=== PATIENT | female | born 1980 | race Caucasian/White ===

== ENCOUNTER 2018-10-19 07:38 | Inpatient (IN) | payer BC, MEDICARE ==
[2018-10-19] MEDS ORDERED: ONDANSETRON 4 MG/2 ML VIAL IVP STA (08:07)
[2018-10-19] MEDS ORDERED: SODIUM CHLORIDE 0.9% 500 ML 500 ML IV STA (08:07)
[2018-10-19] MEDS ORDERED: FAMOTIDINE 20 MG/2 ML VIAL IV STA (08:08)
--- NOTE | 2018-10-19 08:31 | ED ---
General Adult HPI - General Chief complaint: Abdominal Pain Stated complaint: vomiting Time Seen by Provider: 10/19/18 07:53 Source: patient, RN notes reviewed, old records reviewed Mode of arrival: ambulatory Limitations: no limitations - History of Present Illness Initial comments: 38-year-old female presents for evaluation of chronic abdominal pain and nausea vomiting. She has been having daily episodes of nausea vomiting for the past several months. She has been diagnosed with IBS. She states every morning she wakes up, feels nauseated and has significant vomiting this last approximately 4 hours and then resolves. She has tried multiple treatments through her primary care physician. She reports predominantly epigastric abdominal pain. She has had no abdominal surgeries. No fever or chills. She has been able to eat throughout the day after these episodes in the morning. She does have chronic back pain and has medical marijuana card, she smokes marijuana on a regular basis. - Related Data Home Medications Medication Instructions Recorded Confirmed L.acidoph,Paracasei, B.lactis 1 cap PO DAILY 10/19/18 10/19/18 [Probiotic] Mirtazapine [Remeron] 15 mg PO HS 10/19/18 10/19/18 Morphine Sulfate Ir [MSIR] 15 mg PO QID 10/19/18 10/19/18 Omeprazole [PriLOSEC] 20 mg PO AC-BRKFST 10/19/18 10/19/18 Perphenazine [Trilafon] 2 mg PO BID 10/19/18 10/19/18 Prochlorperazine Maleate 5 mg PO Q4H PRN 10/19/18 10/19/18 Sertraline HCl [Zoloft] 25 mg PO DAILY 10/19/18 10/19/18 Sucralfate [Carafate] 1 gm PO ACHS 10/19/18 10/19/18 Allergies Allergy/AdvReac Type Severity Reaction Status Date / Time acetaminophen [From Vicodin] AdvReac Nausea & Verified 10/19/18 09:57 Vomiting fentanyl AdvReac Nausea & Verified 10/19/18 09:57 Vomiting hydrocodone [From Vicodin] AdvReac Nausea & Verified 10/19/18 09:57 Vomiting Review of Systems ROS Statement: Those systems with pertinent positive or pertinent negative responses have been documented in the HPI. ROS Other: All systems not noted in ROS Statement are negative. Past Medical History Past Medical History: No Reported History History of Any Multi-Drug Resistant Organisms: None Reported Additional Past Surgical History / Comment(s): back surgery Past Psychological History: Anxiety, Depression, Panic Disorder Smoking Status: Current some day smoker Past Alcohol Use History: None Reported Past Drug Use History: Marijuana General Exam Limitations: no limitations General appearance: alert, in no apparent distress Head exam: Present: atraumatic, normocephalic Eye exam: Present: normal appearance, PERRL ENT exam: Present: normal exam Neck exam: Present: normal inspection. Absent: tenderness, meningismus Respiratory exam: Present: normal lung sounds bilaterally. Absent: respiratory distress, wheezes Cardiovascular Exam: Present: regular rate, normal rhythm GI/Abdominal exam: Present: soft, tenderness (Right upper quadrant and epigastric tenderness to palpation). Absent: distended, guarding Extremities exam: Present: normal inspection, normal capillary refill. Absent: pedal edema, calf tenderness Back exam: Present: tenderness Neurological exam: Present: alert, oriented X3 Psychiatric exam: Present: normal affect, normal mood Skin exam: Present: warm, dry, intact. Absent: cyanosis, diaphoretic Course Vital Signs 10/19/18 07:40 Temperature 97.7 F Pulse Rate 66 Respiratory 18 Rate Blood Pressure 115/82 O2 Sat by Pulse 98 Oximetry Medical Decision Making - Medical Decision Making 38-year-old female with chronic daily abdominal pain and nausea vomiting. Patient has stable vitals, she has some tenderness on exam in the epigastrium and right upper quadrant. Laboratory testing is unremarkable. Ultrasound shows a dilated pancreatic duct at 2.8 cm, and a dilated common bile duct 8 mm. Patient has persistent symptoms despite treatment in the emergency department. Will be admitted for intractable nausea vomiting, gastroenterology placed on consult. Case discussed with the admitting physician. - Lab Data Result diagrams: 10/19/18 08:39 10/19/18 08:39 Lab Results 10/19/18 10/19/18 10/19/18 Range/Units 08:39 08:39 08:39 WBC 6.7 (3.8-10.6) k/uL RBC 4.37 (3.80-5.40) m/uL Hgb 13.3 (11.4-16.0) gm/dL Hct 39.2 (34.0-46.0) % MCV 89.8 (80.0-100.0) fL MCH 30.5 (25.0-35.0) pg MCHC 34.0 (31.0-37.0) g/dL RDW 12.6 (11.5-15.5) % Plt Count 352 (150-450) k/uL Neutrophils % 71 % Lymphocytes % 21 % Monocytes % 6 % Eosinophils % 1 % Basophils % 0 % Neutrophils # 4.8 (1.3-7.7) k/uL Lymphocytes # 1.4 (1.0-4.8) k/uL Monocytes # 0.4 (0-1.0) k/uL Eosinophils # 0.1 (0-0.7) k/uL Basophils # 0.0 (0-0.2) k/uL PT 11.0 (9.0-12.0) sec INR 1.0 (<1.2) APTT 23.8 (22.0-30.0) sec Sodium 142 (137-145) mmol/L Potassium 3.8 (3.5-5.1) mmol/L Chloride 109 H (98-107) mmol/L Carbon Dioxide 24 (22-30) mmol/L Anion Gap 9 mmol/L BUN 12 (7-17) mg/dL Creatinine 0.80 (0.52-1.04) mg/dL Est GFR (CKD-EPI)AfAm >90 (>60 ml/min/1.73 sqM) Est GFR (CKD-EPI)NonAf >90 (>60 ml/min/1.73 sqM) Glucose 113 H (74-99) mg/dL Calcium 10.1 (8.4-10.2) mg/dL Total Bilirubin 0.4 (0.2-1.3) mg/dL AST 19 (14-36) U/L ALT 19 (9-52) U/L Alkaline Phosphatase 84 (38-126) U/L Total Protein 7.3 (6.3-8.2) g/dL Albumin 4.7 (3.5-5.0) g/dL Amylase 62 (30-110) U/L Lipase 73 (23-300) U/L Urine Color Urine Appearance (Clear) Urine pH (5.0-8.0) Ur Specific [place] (1.001-1.035) Urine Protein (Negative) Urine Glucose (UA) (Negative) Urine Ketones (Negative) Urine Blood (Negative) Urine Nitrite (Negative) Urine Bilirubin (Negative) Urine Urobilinogen (<2.0) mg/dL Ur Leukocyte Esterase (Negative) Urine HCG, Qual (Not Detectd) 10/19/18 10/19/18 Range/Units 09:04 09:04 WBC (3.8-10.6) k/uL RBC (3.80-5.40) m/uL Hgb (11.4-16.0) gm/dL Hct (34.0-46.0) % MCV (80.0-100.0) fL MCH (25.0-35.0) pg MCHC (31.0-37.0) g/dL RDW (11.5-15.5) % Plt Count (150-450) k/uL Neutrophils % % Lymphocytes % % Monocytes % % Eosinophils % % Basophils % % Neutrophils # (1.3-7.7) k/uL Lymphocytes # (1.0-4.8) k/uL Monocytes # (0-1.0) k/uL Eosinophils # (0-0.7) k/uL Basophils # (0-0.2) k/uL PT (9.0-12.0) sec INR (<1.2) APTT (22.0-30.0) sec Sodium (137-145) mmol/L Potassium (3.5-5.1) mmol/L Chloride (98-107) mmol/L Carbon Dioxide (22-30) mmol/L Anion Gap mmol/L BUN (7-17) mg/dL Creatinine (0.52-1.04) mg/dL Est GFR (CKD-EPI)AfAm (>60 ml/min/1.73 sqM) Est GFR (CKD-EPI)NonAf (>60 ml/min/1.73 sqM) Glucose (74-99) mg/dL Calcium (8.4-10.2) mg/dL Total Bilirubin (0.2-1.3) mg/dL AST (14-36) U/L ALT (9-52) U/L Alkaline Phosphatase (38-126) U/L Total Protein (6.3-8.2) g/dL Albumin (3.5-5.0) g/dL Amylase (30-110) U/L Lipase (23-300) U/L Urine Color Colorless Urine Appearance Clear (Clear) Urine pH 8.0 (5.0-8.0) Ur Specific [place] 1.003 (1.001-1.035) Urine Protein Negative (Negative) Urine Glucose (UA) Negative (Negative) Urine Ketones Negative (Negative) Urine Blood Negative (Negative) Urine Nitrite Negative (Negative) Urine Bilirubin Negative (Negative) Urine Urobilinogen <2.0 (<2.0) mg/dL Ur Leukocyte Esterase Negative (Negative) Urine HCG, Qual Not Detected (Not Detectd) Disposition Clinical Impression: Intractable nausea and vomiting, Dilated pancreatic duct Disposition: ADMITTED IP TO THIS [facility] Condition: Stable Is patient prescribed a controlled substance at d/c from ED?: No Referrals: Nonstaff,Physician [Primary Care Provider] - 1-2 days Decision to Admit Reason: Admit from EC Decision Date: 10/19/18 Decision Time: 10:15
[2018-10-19 09:01] LABS: Basophils % (A) 0 %; Eosinophils # (A) 0.1 k/uL (0-0.7); Eosinophils % (A) 1 %; HCT 39.2 % (34.0-46.0); HGB 13.3 gm/dL (11.4-16.0); Lymphocytes # (A) 1.4 k/uL (1.0-4.8); Lymphocytes % (A) 21 %; MCH 30.5 pg (25.0-35.0); MCV 89.8 fL (80.0-100.0); Mean Platelet Volume 6.4; Monocytes # (A) 0.4 k/uL (0-1.0); Monocytes % (A) 6 %; Neutrophils # (A) 4.8 k/uL (1.3-7.7); Neutrophils % (A) 71 %; Platelet Count 352 k/uL (150-450); RBC 4.37 m/uL (3.80-5.40); RDW 12.6 % (11.5-15.5); WBC 6.7 k/uL (3.8-10.6)
[2018-10-19 09:09] LABS: Partial Thromboplastin Time 23.8 sec (22.0-30.0)
[2018-10-19 09:13] LABS: ALT 19 U/L (9-52); AST 19 U/L (14-36); African American GFR (CKD) >90 (>60 ml/min/1.73 sqM); Albumin 4.7 g/dL (3.5-5.0); Alkaline Phosphatase 84 U/L (38-126); Amylase 62 U/L (30-110); Anion Gap 9 mmol/L; Blood Urea Nitrogen 12 mg/dL (7-17); Calcium 10.1 mg/dL (8.4-10.2); Carbon Dioxide 24 mmol/L (22-30); Chloride 109 mmol/L (98-107); Glucose 113 mg/dL (74-99); Lipase 73 U/L (23-300); Potassium 3.8 mmol/L (3.5-5.1); Sodium 142 mmol/L (137-145); Total Bilirubin 0.4 mg/dL (0.2-1.3); Total Protein 7.3 g/dL (6.3-8.2)
[2018-10-19 09:14] LABS: Appearance,Urine Clear (Clear); Bilirubin,Urine Negative (Negative); Blood,Urine Negative (Negative); Color,Urine Colorless; Glucose,Urine (UA) Negative (Negative); Ketones,Urine Negative (Negative); Leukocyte Esterase,Urine Negative (Negative); Nitrite,Urine Negative (Negative); Protein,Urine Negative (Negative); Specific Gravity,Urine 1.003 (1.001-1.035); Urobilinogen,Urine <2.0 mg/dL (<2.0)
--- NOTE | 2018-10-19 09:45 | US ---
EXAMINATION TYPE: US gallbladder DATE OF EXAM: 10/19/2018 COMPARISON: NONE CLINICAL HISTORY: 38-year-old female RUQ pain, nausea and vomiting every morning for 8 months TECHNIQUE: Multiple sonographic images of the right upper quadrant are obtained. FINDINGS: EXAM MEASUREMENTS: Liver Length: 14.0 cm Gallbladder Wall: 0.2 cm CBD: 0.8 cm Right Kidney: 10.6 x 3.9 x 4.6 cm Pancreas: A small portion of the pancreatic body is seen. The remainder is obscured by bowel gas sha dowing. The main pancreatic duct is borderline dilated at 2.8 mm. Liver: A few scattered double ducts are difficult to exclude. No focal lesion seen. Gallbladder: No abnormal distention, wall thickening, pericholecystic fluid, or shadowing calculi. Evidence for sonographic Venegas's sign: no CBD: Dilated at 8 mm Right Kidney: wnl IMPRESSION: Borderline caliber to the main pancreatic duct at 2.8 mm and a dilated bile duct at 8 mm. A relative distal obstruction such as near the ampulla or in the pancreatic head region difficult to exclude. Co rrelate with alkaline phosphatase, bilirubin levels, amylase/lipase. ERCP or MRCP if indicated.
[2018-10-19] MEDS ORDERED: NALOXONE 0.4 MG/ML 1 ML VIAL IV PRN (10:10)
[2018-10-19] MEDS: SUCRALFATE 1 GM TAB PO SCH ×3 (13:06→20:24)
[2018-10-19] MEDS: SODIUM CHLORIDE 0.9% 1,000 ML IV SCH (13:14)
[2018-10-19] MEDS: HEPARIN SODIUM,PORCINE 5,000 UNIT/ML 1 ML VIAL SQ SCH ×2 (15:24→23:02)
[2018-10-19] MEDS: ONDANSETRON 4 MG/2 ML VIAL IVP PRN ×2 (15:24→22:44)
[2018-10-19] MEDS: MIRTAZAPINE 15 MG TAB PO SCH (20:23)
--- NOTE | 2018-10-19 22:56 | P.HPIM ---
History of Present Illness H&P Date: 10/19/18 Chief Complaint: Nausea and vomiting Patient is a 38-year-old female with a known history of anxiety/depression and panic disorder, nicotine addiction and marijuana use came to ER with the complaints of intractable nausea and vomiting intermittently since January 2018. 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 Patient has been having bilious vomiting. Unable to tolerate any oral diet. Patient was diagnosed with IBS. Patient was seen by Dr. Barry in the GI clinic. Patient says that she had easy and colonoscopy. Patient is also having epigastric abdominal pain. No fever no chills. No chest pain or shortness of breath. She does have chronic back pain and has medical marijuana card, she smokes marijuana on a regular basis. Ultrasound of the abdomen showed borderline caliber to the main pancreatic duct at 2.8 mm and dilated bile duct at 8 mm. Review of Systems Constitutional: Patient denies any fever or chills . No generalized weakness or weight loss. Abdomen: Intractable nausea vomiting abdominal pain. Cardiovascular: Patient denies any chest pain or short of breath no palpitations. Respiratory: patient denied any cough is from production. No shortness of breath Neurologic: Patient denied any numbness or tingling headache. Musculoskeletal: Patient denies any complaints of joint swelling or deformity. Skin: Negative Psychiatric: Negative Endocrine: No heat or cold intolerance. No recent weight gain. Genitourinary: No dysuria or hematuria. All other 14 point ROS negative except the above Past Medical History Past Medical History: No Reported History History of Any Multi-Drug Resistant Organisms: None Reported Additional Past Surgical History / Comment(s): back surgery Past Psychological History: Anxiety, Depression, Panic Disorder Smoking Status: Current some day smoker Past Alcohol Use History: None Reported Past Drug Use History: Marijuana - Past Family History Mother Family Medical History: No Reported History Medications and Allergies Home Medications Medication Instructions Recorded Confirmed Type L.acidoph,Paracasei, B.lactis 1 cap PO DAILY 10/19/18 10/19/18 History [Probiotic] Mirtazapine [Remeron] 15 mg PO HS 10/19/18 10/19/18 History Morphine Sulfate Ir [MSIR] 15 mg PO QID 10/19/18 10/19/18 History Omeprazole [PriLOSEC] 20 mg PO -KT 10/19/18 10/19/18 History Perphenazine [Trilafon] 2 mg PO BID 10/19/18 10/19/18 History Prochlorperazine Maleate 5 mg PO Q4H PRN 10/19/18 10/19/18 History Sertraline HCl [Zoloft] 25 mg PO DAILY 10/19/18 10/19/18 History Sucralfate [Carafate] 1 gm PO ACHS 10/19/18 10/19/18 History Allergies Allergy/AdvReac Type Severity Reaction Status Date / Time acetaminophen [From Vicodin] AdvReac Nausea & Verified 10/19/18 09:57 Vomiting fentanyl AdvReac Nausea & Verified 10/19/18 09:57 Vomiting hydrocodone [From Vicodin] AdvReac Nausea & Verified 10/19/18 09:57 Vomiting Physical Exam Vitals: Vital Signs Temp Pulse Pulse Resp BP BP Pulse Ox 10/19/18 11:29 97.7 F 60 15 103/63 97 10/19/18 11:12 97.7 F 88 18 114/86 98 10/19/18 10:16 88 18 114/86 98 10/19/18 07:40 97.7 F 66 18 115/82 98 Intake and Output 10/18/18 10/19/18 10/19/18 22:59 06:59 14:59 Intake Total 300 Balance 300 Intake: Amount of Fluid Infused ( 300 ml) Other: Weight 77.111 kg PHYSICAL EXAMINATION: Patient is lying in the bed comfortably, no acute distress, awake alert and oriented. Patient is anxious., Tearful.. HEENT: Normocephalic. Neck is supple. Pupils reactive. Nostrils clear. Oral cavity is moist. Ears reveal no drainage. Neck reveals no JVD, carotid bruits, or thyromegaly. CHEST EXAMINATION: Trachea is central. Symmetrical expansion. Lung pinto clear to auscultation and percussion. CARDIAC: Normal S1, S2 with no gallops. No murmurs ABDOMEN: Soft. Bowel sounds normal. No organomegaly. No abdominal bruits. Extremities: reveal no edema. No clubbing or cyanosis Neurologically awake, alert, oriented x3 with well-coordinated movements. No focal deficits noted Skin: No rash or skin lesions. Psychiatric: Coperative. Nonsuicidal Musculoskeletal: No joint swelling or deformity. Normal range of motion. Results CBC & Chem 7: 10/19/18 08:39 10/19/18 08:39 Labs: Abnormal Lab Results - Last 24 Hours (Table) 10/19/18 Range/Units 08:39 Chloride 109 H (98-107) mmol/L Glucose 113 H (74-99) mg/dL Thrombosis Risk Factor Assmnt - DVT/VTE Prophylaxis DVT/VTE Prophylaxis: Pharmacologic Prophylaxis ordered Assessment and Plan Assessment: Intractable nausea vomiting and dilated bile duct. Suspected obstructive to the distal bile duct. History of IBS Anxiety/depression/panic disorder Nicotine addiction and marijuana use with medical card. DVT prophylaxis Plan: Patient be continued on IV hydration. Symptomatic management for nausea and vomiting. Continue with PPI IV daily. Gastroenterology was consulted for possible ERCP/MRCP. Further recommendations based on the clinical course. Smoking sedation has been counseled extensively. Time with Patient: Greater than 30
[2018-10-20] MEDS: SODIUM CHLORIDE 0.9% 1,000 ML IV SCH ×2 (05:09→05:21)
[2018-10-20] MEDS: ONDANSETRON 4 MG/2 ML VIAL IVP PRN (05:15)
[2018-10-20] MEDS: SUCRALFATE 1 GM TAB PO SCH ×4 (07:52→22:42)
[2018-10-20] MEDS: SERTRALINE 25 MG TAB PO SCH (07:53)
[2018-10-20] MEDS: LACTOBACILLUS ACIDOPH & BULGAR 1 EACH PACKET PO SCH (07:54)
[2018-10-20] MEDS ORDERED: TRIMETHOBENZAMIDE 100 MG/ML 2 ML VIAL IM STA (08:09)
[2018-10-20] MEDS: HEPARIN SODIUM,PORCINE 5,000 UNIT/ML 1 ML VIAL SQ SCH ×2 (08:58→18:08)
[2018-10-20] MEDS: PANTOPRAZOLE 40 MG/10 ML VIAL IV SCH (08:59)
--- NOTE | 2018-10-20 12:41 | MR ---
EXAMINATION TYPE: MR MRCP DATE OF EXAM: 10/20/2018 COMPARISON: Previous ultrasound dated 10/19/2018. HISTORY: abnormal ultrasound Standard multiplanar, multisequence MRI departmental protocol MRCP was acquired. Diffusion weighted imaging was not performed. FINDINGS: Bilateral breast implants are in place. The gallbladder is unremarkable. The distal common bile duct is dilated measuring 8.8 mm. A definite lesion at the ampulla bladder is not identified. The pancreas appears normal. The pancreatic duct is not dilated. In phase and out of phase imaging shows mild steatosis of the liver. The spleen is unremarkable. Both adrenal glands appear normal. The kidneys are unremarkable. IMPRESSION: 1. DILATED DISTAL COMMON BILE DUCT. 2. BILATERAL BREAST IMPLANTS NOT FULLY VISUALIZED.
[2018-10-20] MEDS: MIRTAZAPINE 15 MG TAB PO SCH (22:42)
[2018-10-21] MEDS: HEPARIN SODIUM,PORCINE 5,000 UNIT/ML 1 ML VIAL SQ SCH ×4 (01:20→23:40)
[2018-10-21] MEDS: SODIUM CHLORIDE 0.9% 1,000 ML IV SCH ×2 (02:30→23:43)
[2018-10-21] MEDS: ONDANSETRON 4 MG/2 ML VIAL IVP PRN (06:01)
[2018-10-21] MEDS: LACTOBACILLUS ACIDOPH & BULGAR 1 EACH PACKET PO SCH (09:12)
[2018-10-21] MEDS: PANTOPRAZOLE 40 MG/10 ML VIAL IV SCH (09:12)
[2018-10-21] MEDS: SUCRALFATE 1 GM TAB PO SCH ×4 (09:12→20:34)
[2018-10-21] MEDS: SERTRALINE 25 MG TAB PO SCH (09:12)
--- NOTE | 2018-10-21 10:16 | P.GSCN ---
History of Present Illness Consult date: 10/21/18 Reason for Consult: Abdominal pain Requesting physician: Daisy Franklin History of present illness: CHIEF COMPLAINT: Abdominal pain HISTORY OF PRESENT ILLNESS: The patient is a 38 year old female admitted for the last 2 days in the hospital. She has severe intractable abdominal pain with nausea and vomiting since admission. She is being followed by GI Dr. Franklin who has done an upper and lower endoscopy with diagnosis of irritable bowel syndrome months prior. She has been followed for at least 8 months for similar symptoms and has also been seen by a psychiatrist. She has intolerance to multiple foods. She denies trial of gluten free diet, though. Her pain is severe crampy in nature radiating from the right upper back, shoulder, right upper abdominal wall. She also reports having a hiatal hernia. She has completed MRCP and US of the gallbladder with dilated common bile duct and pancreatic duct. General bhakta rgery is consulted as she presents with right upper quadrant pain, intolerance to fatty foods, family history of gallbladder disease. PAST MEDICAL HISTORY: See list. PAST SURGICAL HISTORY: See list. MEDICATIONS: See list. ALLERGIES: See list. SOCIAL HISTORY: Has illicit drug use. Tobacco abuse. FAMILY HISTORY: No reports of Crohn's disease or inflammatory bowel disease. Family history of gallbladder disorder. REVIEW OF ORGAN SYSTEMS: CONSTITUTIONAL: No fevers or chills. EYES: Denies any trouble with vision. No glasses. HEENT: No difficulties with hearing. No nosebleeds. No difficulty swallowing. RESPIRATORY: Denies pneumonia. Denies any troubles with breathing or dyspnea on exertion. CARDIOVASCULAR: Denies any chest pain, palpitations, or recent heart attacks. GASTROINTESTINAL: Has fatty food intolerance. Has change in bowel habits and gas bloat. GENITOURINARY: Denies any blood in urine or increased urinary frequency. NEUROLOGICAL: Denies any numbness or tingling along the distal extremities. No seizure disorders or headaches. MUSCULOSKELETAL: Has back pain, stiffness or joint arthritis. SKIN: No current skin cancer. No rash. PSYCHIATRIC: Has depression. No suicidal thoughts. Has anxiety. Has panic disorder. ENDOCRINE: Denies current thyroid disorders. Denies any blood sugar glucose intolerance. HEME/LYMPHATIC: Denies any lumps and bumps around the neck. No recent deep venous thrombosis. ALLERGY/IMMUNOLOGY: No immunoglobulin therapy. No immune deficiencies. BREAST: Denies current breast lumps, pain or nipple discharge. PHYSICAL EXAM: VITALS: Reviewed CONSTITUTIONAL: Well developed and in no acute distress. EYES: Conjuctivae without sclera icterus. Pupils are equally round and reactive to light. Extraocular movements grossly intact. HEAD, EARS, NOSE, THROAT: Moist buccal mucosa. Head is atraumatic, normocephalic. Hears conversational speech. No nasal drainage. NECK: Supple. No JV distention. No thyroidomegaly. RESPIRATORY: Non-labored respirations and equal bilateral excursions. No gross wheezes. CARDIOVASCULAR: Regular rate and rhythm. Extremities without moderate edema. Palpable 2+ radial pulses. ABDOMEN: No hepatomegaly. Soft. Tender right upper quadrant. LYMPH: No neck lymphadenopathy. MUSCULOSKELETAL: Gait within normal limits. Range of motion bilateral upper extremities within normal limits. Nail and fingers with good capillary refill. SKIN: Warm and well perfused with good skin turgor. NEUROLOGIC: Cranial nerves I through XII grossly intact. Sensation upper and extremities intact. No focal or lateralizing signs. PSYCH: Appropriate affect. Alert and oriented to person, place and time. Displays appropriate insight. CLINCAL LABS: Reviewed. LFTs normal. RADIOLOGY: Report reviewed with MRCP showing dilated CBD. Report of US also showing dilated pancreatic and CBD ducts. IMAGING: Independently reviewed demonstrating fold in gallbladder at infundibulum not reported by radiologist. ASSESSMENT: 1. Abnormal US gallbladder 2. Abdominal pain 3. Intractable nausea and vomiting 4. Clinical cholecystitis. PLAN: 1. Will proceed with robotic cholecystectomy. 2. I did review with her that there is a possibility that she may have persistent symptoms after surgery. 3. Benefits and risks were reviewed. 4. Shared decision making performed and she was agreeable to proceed. 5. DVT prophylaxis 6. Antibiotic prophylaxis. 7. Low fat diet. Thank you for this kind consultation. Past Medical History Past Medical History: No Reported History History of Any Multi-Drug Resistant Organisms: None Reported Additional Past Surgical History / Comment(s): back surgery Past Psychological History: Anxiety, Depression, Panic Disorder Smoking Status: Current some day smoker Past Alcohol Use History: None Reported Past Drug Use History: Marijuana - Past Family History Mother Family Medical History: No Reported History Medications and Allergies Home Medications Medication Instructions Recorded Confirmed Type L.acidoph,Paracasei, B.lactis 1 cap PO DAILY 10/19/18 10/19/18 History [Probiotic] Mirtazapine [Remeron] 15 mg PO HS 10/19/18 10/19/18 History Morphine Sulfate Ir [MSIR] 15 mg PO QID 10/19/18 10/19/18 History Omeprazole [PriLOSEC] 20 mg PO AC-BRKFST 10/19/18 10/19/18 History Perphenazine [Trilafon] 2 mg PO BID 10/19/18 10/19/18 History Prochlorperazine Maleate 5 mg PO Q4H PRN 10/19/18 10/19/18 History Sertraline HCl [Zoloft] 25 mg PO DAILY 10/19/18 10/19/18 History Sucralfate [Carafate] 1 gm PO ACHS 10/19/18 10/19/18 History Allergies Allergy/AdvReac Type Severity Reaction Status Date / Time acetaminophen [From Vicodin] AdvReac Nausea & Verified 10/19/18 09:57 Vomiting fentanyl AdvReac Nausea & Verified 10/19/18 09:57 Vomiting hydrocodone [From Vicodin] AdvReac Nausea & Verified 10/19/18 09:57 Vomiting Surgical - Exam Vital Signs Temp Pulse Resp BP Pulse Ox 97.7 F 66 18 115/82 98 10/19/18 07:40 10/19/18 07:40 10/19/18 07:40 10/19/18 07:40 10/19/18 07:40 Results - Labs 10/19/18 08:39 10/19/18 08:39
--- NOTE | 2018-10-21 11:56 | CONS ---
CONSULTATION DATE OF CONSULTATION: 10/21/2018 REQUESTING PHYSICIAN: Dr. Matt. REASON FOR CONSULTATION: Abdominal pain. HISTORY OF PRESENT ILLNESS: The patient is a 38-year-old pleasant white female with a history of severe anxiety and depression as well as panic disorder, known to me from multiple office visits in the last 6 months. She has been complaining of severe abdominal pain associated with nausea, vomiting, diarrhea for the last 6-8 months duration. She was evaluated by me on an outpatient basis and an upper endoscopy as well as colonoscopy with biopsies as well as CT of the abdomen and pelvis done in January as well as February of 2018 and all of the workup was negative. The patient was being treated for possible irritable bowel syndrome as well as GERD with PPIs, dicyclomine and Lomotil on an outpatient basis. She was last seen in the office about 2 weeks ago, has been complaining of worsening symptoms, especially with diffuse abdominal pain mostly in the right upper quadrant area radiating to the back. Ultrasound of the abdomen done showed a slightly dilated pancreatic duct at 2.8 mm in diameter and slightly dilated common bile duct and she had an MRCP done that also showed dilated common bile duct measuring 8 mm in size, but no filling defects noted. She still complains of diffuse abdominal pain and requesting a surgical opinion. PAST MEDICAL HISTORY: Significant for anxiety, depression, irritable bowel syndrome, gastroesophageal reflux disease. PAST SURGICAL HISTORY: Back surgery; EGD, colonoscopy 6 months ago. MEDICATIONS: At home include Remeron, morphine, Prilosec, Trilafon, Zoloft, Carafate, Phenergan. ALLERGIES: TO FENTANYL, VICODIN. PAST FAMILY MEDICAL HISTORY: The family history unremarkable. SOCIAL HISTORY: Chronic smoker. No alcohol use. REVIEW OF SYSTEMS: Cardiopulmonary: No chest pain. Genitourinary: No dysuria or hematuria. Musculoskeletal: Unremarkable. Skin: Unremarkable. Endocrine: Unremarkable. Psychiatric: Unremarkable. Neurological: Unremarkable. ENT/vision unremarkable. Constitutional: No recent weight loss. No fever. PHYSICAL EXAMINATION: Appears comfortable no apparent distress. Vital signs stable. Blood pressure 132/88, pulse rate 58, temperature 98.6. HEENT examination unremarkable. Conjunctivae pink. Sclerae anicteric. Oral cavity no lesions. Neck: No jugular venous distention or lymph node enlargement. The chest was clear to auscultation. HEART: Regular rate and rhythm. ABDOMEN: Soft. Bowel sounds are positive. No organomegaly. EXTREMITIES: No pedal edema. SKIN no rashes. NEUROLOGIC: Alert and oriented x3. No focal deficits. LABS: Done at the time of admission to the hospital: WBC 6.7, hemoglobin 13.3, platelets are normal. PT/INR is normal. LFTs are normal. Amylase and lipase are within normal limits. Urinalysis was negative. IMPRESSION: 1. Right upper quadrant abdominal pain with intermittent episodes of nausea, vomiting for 6 to 8 months duration. She did have EGD colonoscopy as well as CT of the abdomen and pelvis in 6 months ago that was unremarkable. During this hospitalization, she did have ultrasound of the abdomen that showed a normal- appearing gallbladder with no evidence of gallstones or thickening noted. Subsequently, she was noted to have slightly dilated CBD at 8 mm and hence an MRCP was performed, which once again showed mild dilation of the common bile duct, but no evidence of filling defects noted. 2. History of severe anxiety and depression, being managed by psychiatric on an outpatient basis with antidepressants. RECOMMENDATION: Discussed with the patient all workup that she had undergone over the last 6 months. Reviewed results of ultrasound of the gallbladder as well as MRCP and biliary dilation with completely normal LFTs. No indication of any biliary obstruction or biliary pathology. Hence, no indication to proceed with any endoscopy intervention at the present time. Despite trying to explain to the patient, she requested for another opinion and hence we will obtain surgical consultation to evaluate further. In the meantime, continue with symptomatic and supportive care. Antiemetics as needed. Continue with Protonix 40 mg daily and will follow her closely during hospital stay. Thank you for this consultation. MMODL / IJN: [id number] /
[2018-10-21] MEDS: MIRTAZAPINE 15 MG TAB PO SCH (20:34)
--- NOTE | 2018-10-21 21:02 | P.PN ---
Subjective Progress Note Date: 10/20/18 Principal diagnosis: Nausea vomiting and abdominal pain Dilated bile ducts. Patient is a 38-year-old female with a known history of anxiety/depression and panic disorder, nicotine addiction and marijuana use came to ER with the complaints of intractable nausea and vomiting intermittently since January 2018. 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 Patient has been having bilious vomiting. Unable to tolerate any oral diet. Patient was diagnosed with IBS. Patient was seen by Dr. Barry in the GI clinic. Patient says that she had easy and colonoscopy. Patient is also having epigastric abdominal pain. No fever no chills. No chest pain or shortness of breath. She does have chronic back pain and has medical marijuana card, she smokes marijuana on a regular basis. Ultrasound of the abdomen showed borderline caliber to the main pancreatic duct at 2.8 mm and dilated bile duct at 8 mm. 10/20/2018 Patient is still complaining of nausea and episodes of vomiting. Also having abdominal pain. Slightly improved compared to yesterday. MRCP was done today which showed dilated distal common bile duct. Bilateral breast implants clinically not visualized. Gastroenterology is following. Gen. surgery will be consulted. chest pain or shortness of breath. no headache or dizziness or lightheadedness. current medications reviewed.. Objective - Vital Signs Vital signs: Vital Signs Temp 98.0 F 10/20/18 20:00 Pulse 60 10/20/18 20:00 Resp 18 10/20/18 20:00 BP 106/67 10/20/18 20:00 Pulse Ox 95 10/20/18 20:00 Intake & Output 10/20/18 10/20/18 10/21/18 06:59 18:59 06:59 Output Total 100 Balance -100 Output: Emesis 100 Other: # Voids 1 2 - Exam PHYSICAL EXAMINATION: Patient is lying in the bed comfortably, no acute distress, awake alert and orie nted.. HEENT: Normocephalic. Neck is supple. Pupils reactive. Nostrils clear. Oral cavity is moist. Ears reveal no drainage. Neck reveals no JVD, carotid bruits, or thyromegaly. CHEST EXAMINATION: Trachea is central. Symmetrical expansion. Lung pinto clear to auscultation and percussion. CARDIAC: Normal S1, S2 with no gallops. No murmurs ABDOMEN: Soft. Mild right upper quadrant tenderness. Bowel sounds normal. No organomegaly. No abdominal bruits. Extremities: reveal no edema. No clubbing or cyanosis Neurologically awake, alert, oriented x3 with well-coordinated movements. No focal deficits noted Skin: No rash or skin lesions. Psychiatric: Coperative. Nonsuicidal Musculoskeletal: No joint swelling or deformity. Normal range of motion. - Labs CBC & Chem 7: 10/19/18 08:39 10/19/18 08:39 Assessment and Plan Assessment: Intractable nausea vomiting and dilated bile duct. Suspected obstructive to the distal bile duct. MRCP showed distal dilated common bile left. History of IBS Anxiety/depression/panic disorder Nicotine addiction and marijuana use with medical card. DVT prophylaxis Plan: Patient be continued on IV hydration. Symptomatic management for nausea and vomiting. Continue with PPI IV daily. Gastroenterology is following.. Further recommendations based on the clinical course. Smoking sedation has been counseled extensively. Time with Patient: Greater than 30
--- NOTE | 2018-10-21 21:05 | P.PN ---
Subjective Progress Note Date: 10/21/18 Principal diagnosis: Nausea vomiting and abdominal pain Dilated bile ducts. Patient is a 38-year-old female with a known history of anxiety/depression and panic disorder, nicotine addiction and marijuana use came to ER with the complaints of intractable nausea and vomiting intermittently since January 2018. 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 Patient has been having bilious vomiting. Unable to tolerate any oral diet. Patient was diagnosed with IBS. Patient was seen by Dr. Barry in the GI clinic. Patient says that she had easy and colonoscopy. Patient is also having epigastric abdominal pain. No fever no chills. No chest pain or shortness of breath. She does have chronic back pain and has medical marijuana card, she smokes marijuana on a regular basis. Ultrasound of the abdomen showed borderline caliber to the main pancreatic duct at 2.8 mm and dilated bile duct at 8 mm. 10/20/2018 Patient is still complaining of nausea and episodes of vomiting. Also having abdominal pain. Slightly improved compared to yesterday. MRCP was done today which showed dilated distal common bile duct. Bilateral breast implants clinically not visualized. Gastroenterology is following. Gen. surgery will be consulted. chest pain or shortness of breath. no headache or dizziness or lightheadedness. 10/21/2018 Patient denied any complaints of nausea and vomiting today. Abdominal pain improved. Patient was seen by general surgery and is planning for cholecystectomy tomorrow due to fold in gallbladder at infundibulum And clinical cholecystitis. No fever no chills. No chest pain or shortness of breath. No headache or dizziness or lightheadedness. Patient is scheduled for surgery tomorrow. Nothing by mouth after midnight. current medications reviewed.. Objective - Vital Signs Vital signs: Vital Signs Temp 98.5 F 10/21/18 12:25 Pulse 68 10/21/18 12:25 Resp 16 10/21/18 12:25 BP 111/72 10/21/18 12:25 Pulse Ox 97 10/21/18 12:25 Intake & Output 10/20/18 10/21/18 10/21/18 18:59 06:59 18:59 Intake Total 300 Balance 300 Intake: Oral 300 Other: # Voids 2 2 3 - Exam PHYSICAL EXAMINATION: Patient is lying in the bed comfortably, no acute distress, awake alert and oriented.. HEENT: Normocephalic. Neck is supple. Pupils reactive. Nostrils clear. Oral cavity is moist. Ears reveal no drainage. Neck reveals no JVD, carotid bruits, or thyromegaly. CHEST EXAMINATION: Trachea is central. Symmetrical expansion. Lung pinto clear to auscultation and percussion. CARDIAC: Normal S1, S2 with no gallops. No murmurs ABDOMEN: Soft. Mild right upper quadrant tenderness. Bowel sounds normal. No organomegaly. No abdominal bruits. Extremities: reveal no edema. No clubbing or cyanosis Neurologically awake, alert, oriented x3 with well-coordinated movements. No focal deficits noted Skin: No rash or skin lesions. Psychiatric: Coperative. Nonsuicidal Musculoskeletal: No joint swelling or deformity. Normal range of motion. - Labs CBC & Chem 7: 10/19/18 08:39 10/19/18 08:39 Assessment and Plan Assessment: Intractable nausea vomiting and dilated bile duct.. MRCP showed distal dilated common bile left. Abnormal gallbladder Fold in gallbladder at infundibulum and clinical cholecystitis. History of IBS Anxiety/depression/panic disorder Nicotine addiction and marijuana use with medical card. DVT prophylaxis Plan: Patient be continued on IV hydration. Symptomatic management for nausea and vomiting. Continue with PPI IV daily. Gastroenterology and general surgery is following. Scheduled for cholecystectomy tomorrow.. Further recommendations based on the clinical course. Smoking sedation has been counseled extensively. Time with Patient: Greater than 30
[2018-10-22] MEDS: ONDANSETRON 4 MG/2 ML VIAL IVP PRN (04:02)
[2018-10-22] MEDS ORDERED: diphenhydrAMINE 50 MG/ML 1 ML VIAL IVP PRN (06:12)
[2018-10-22] MEDS ORDERED: ceFAZolin IN SWFI 2 GM/20 ML SYRINGE IVP ONE (08:00)
[2018-10-22] MEDS ORDERED: IV FLUID CONTINUATION 1,000 ML IV ONE (08:32)
[2018-10-22] MEDS ORDERED: METOCLOPRAMIDE 5 MG/ML 2 ML VIAL IVP ONE (09:10)
[2018-10-22] MEDS ORDERED: FAMOTIDINE 20 MG/2 ML VIAL IVP ONE (09:10)
[2018-10-22] MEDS ORDERED: HEPARIN SODIUM,PORCINE 5,000 UNIT/ML 1 ML VIAL SQ ONE (10:18)
[2018-10-22] MEDS ORDERED: LACTATED RINGERS 1,000 ML IV ONE (10:58)
[2018-10-22] MEDS ORDERED: LIDOCAINE 1% INJ 10MG/ML (20 ML MDV) SQ ONE (11:00)
[2018-10-22] MEDS ORDERED: diphenhydrAMINE 50 MG/ML 1 ML VIAL IVP ONE (12:00)
[2018-10-22] MEDS ORDERED: HYDROmorphone 1 MG/ML 1 ML SYRINGE IVP ONE ×2 (12:09→12:20)
[2018-10-22] MEDS ORDERED: PROMETHAZINE INJ 25 MG/ML 1 ML VIAL IVPB ONE (12:25)
--- NOTE | 2018-10-22 12:35 | P.OP ---
Date of Procedure: 10/22/18 Description of Procedure: SURGEON: STACIE MATHEW MD PREOPERATIVE DIAGNOSES: 1. Right upper quadrant abdominal pain 2. Chronic cholecystitis 3. Abnormal US gallbladder 4. Intractable nausea and vomiting 5. Family history of gallbladder disease 6. Panic disorder 7. Depressive disorder 8. Anxiety disorder 9. Tobacco use. POSTOPERATIVE DIAGNOSES: 1. Right upper quadrant abdominal pain 2. Chronic cholecystitis 3. Abnormal US gallbladder 4. Intractable nausea and vomiting 5. Family history of gallbladder disease 6. Panic disorder 7. Depressive disorder 8. Anxiety disorder 9. Tobacco use. OPERATION: Robotic-assisted da Kim Xi laparoscopic cholecystectomy, multiport with FIREFLY Anesthesia: GETA, local Estimated Blood Loss (ml): 5 Pathology: other (gallbladder) Condition: stable Disposition: floor Operative Findings: 1. Dilated CBD 2. Adhesions along right lower quadrant 3. Console time 11 minutes INDICATIONS: The patient is a 38-year-old female who presents with cholelcystitis. Surgical intervention with a laparoscopic cholecystectomy was described at length including injury to the biliary tree, bleeding, infection, need for further surgery. Informed consent was obtained. Robotic assisted laparoscopic approach was described. Benefits and risks of the procedure including but not limited to bleeding, infection, injury to the biliary tree was described. Informed consent was obtained. DESCRIPTION OF PROCEDURE: Patient was brought to the operating room, placed in supine position. After general induction, the abdomen had been prepped and draped in standard sterile fashion. The robotic da Kim XI system was primed. After a timeout protocol was performed, the patient had been prepped and draped in standard sterile fashion. The patient was injected with indocyanine green. A 5 mm 0 degrees laparoscopic trocar entry was performed along the left upper quadrant. The abdomen insufflated to 15 mmHg pressure which was tolerated well. Diagnostic laparoscopy demonstrated no injury to bowel viscera or mesentery. The liver surface was unremarkable. Next, two 8 mm robotic ports were placed along the right upper abdomen. The camera 8-mm port was maintained along the epigastrium. Another 8 mm port was placed along the left upper abdominal wall after exchanging the 5 mm port. Please note that the ports were placed at least 10 to 15 cm away from the target anatomy of the gallbladder. The robot was docked along the left lateral abdomen. The patient was repositioned in reverse Trendelenburg position. Using a grasper for arm 3, a grasper for arm 4, including hook cautery for arm 1, the robotic system was docked and primed as described. Instruments were interchanged by the butcher assistant including hook cautery, Bovie cautery and clip appliers. I had sat at the console. The gallbladder fundus was retracted over the dome of the liver. Initial attention was brought to the infundibulum which was gently retracted in the inferior lateral approach. Using a grasper, the cystic duct including the cystic artery was carefully skeletonized. FIREFLY was used to identify the cystic artery and cystic structures. Large PLASTIC clips were used throughout the entire case. Using a clip research recruiter 2 clips were placed proximally, and 1 clip was placed distally along the cystic duct and then cauterized with the cautery. Again care was taken to avoid any injury to the biliary tree as the common bile duct was clearly visualized during this portion of dissection. Next, the cystic artery was similarly clipped and cauterized. Electro-Bovie cautery was used to remove the gallbladder from the hepatic fossa. Hemostasis was checked and found to be adequate. The robot was undocked. I re-scrubbed into the case. Using a 10 mm Endo Catch bag via the left upper quadrant incision, the specimen was removed from the abdominal cavity. All pneumoperitoneum instruments were evacuated from the abdominal cavity. The incisions were reapproximated using 4-0 Monocryl in an interrupted subcuticular fashion. Fascial defects were less than 8 mm in size. Please note along the trocar sites, local anesthetic was placed as a field block prior to insertion of all instruments. Liquid glue was applied to the skin. At the end of the procedure needle, sponge, and instrument count had been verified correct by the instructor adjunct surgical technician. The patient was transferred to postanesthesia care unit in stable condition.
[2018-10-22] MEDS: SUCRALFATE 1 GM TAB PO SCH ×4 (13:07→22:08)
[2018-10-22] MEDS: HYDROmorphone 1 MG/ML 1 ML SYRINGE IVP PRN ×3 (14:29→20:33)
[2018-10-22] MEDS ORDERED: ACETAMINOPHEN TAB 325 MG TAB PO PRN (14:34)
[2018-10-22 15:37] LABS: Basophils % (A) 0 %; Eosinophils % (A) 0 %; HCT 34.7 % (34.0-46.0); HGB 11.6 gm/dL (11.4-16.0); Lymphocytes # (A) 1.2 k/uL (1.0-4.8); Lymphocytes % (A) 12 %; MCH 29.8 pg (25.0-35.0); MCHC 33.6 g/dL (31.0-37.0); MCV 88.8 fL (80.0-100.0); Mean Platelet Volume 7.1; Monocytes # (A) 0.6 k/uL (0-1.0); Monocytes % (A) 6 %; Neutrophils # (A) 8.2 k/uL (1.3-7.7); Neutrophils % (A) 82 %; Platelet Count 300 k/uL (150-450); RDW 13.5 % (11.5-15.5); WBC 10.1 k/uL (3.8-10.6)
[2018-10-22 15:47] LABS: ALT 25 U/L (9-52); AST 31 U/L (14-36); African American GFR (CKD) >90 (>60 ml/min/1.73 sqM); Albumin 4.1 g/dL (3.5-5.0); Alkaline Phosphatase 67 U/L (38-126); Anion Gap 8 mmol/L; Blood Urea Nitrogen 8 mg/dL (7-17); Calcium 8.9 mg/dL (8.4-10.2); Carbon Dioxide 24 mmol/L (22-30); Chloride 109 mmol/L (98-107); Glucose 87 mg/dL (74-99); Potassium 3.6 mmol/L (3.5-5.1); Sodium 141 mmol/L (137-145); Total Bilirubin 0.3 mg/dL (0.2-1.3); Total Protein 6.5 g/dL (6.3-8.2)
[2018-10-22] MEDS: HEPARIN SODIUM,PORCINE 5,000 UNIT/ML 1 ML VIAL SQ SCH ×2 (16:24→17:42)
[2018-10-22] MEDS: LACTOBACILLUS ACIDOPH & BULGAR 1 EACH PACKET PO SCH (16:24)
[2018-10-22] MEDS: PANTOPRAZOLE 40 MG/10 ML VIAL IV SCH (17:39)
[2018-10-22] MEDS: SERTRALINE 25 MG TAB PO SCH (17:39)
[2018-10-22] MEDS: SODIUM CHLORIDE 0.9% 1,000 ML IV SCH (17:44)
[2018-10-22] MEDS: KETOROLAC 30 MG/ML 1 ML VIAL IVP PRN (19:57)
[2018-10-22] MEDS: MIRTAZAPINE 15 MG TAB PO SCH (20:32)
--- NOTE | 2018-10-22 20:52 | P.PN ---
Subjective From the medical records Patient is a 38-year-old female with a known history of anxiety/depression and panic disorder, nicotine addiction and marijuana use came to ER with the complaints of intractable nausea and vomiting intermittently since January 2018. 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 Patient has been having bilious vomiting. Unable to tolerate any oral diet. Patient was diagnosed with IBS. Patient was seen by Dr. Barry in the GI clinic. Patient says that she had easy and colonoscopy. Patient is also having epigastric abdominal pain. No fever no chills. No chest pain or shortness of breath. She does have chronic back pain and has medical marijuana card, she smokes marijuana on a regular basis. Ultrasound of the abdomen showed borderline caliber to the main pancreatic duct at 2.8 mm and dilated bile duct at 8 mm. 10/20/2018 Patient is still complaining of nausea and episodes of vomiting. Also having abdominal pain. Slightly improved compared to yesterday. MRCP was done today which showed dilated distal common bile duct. Bilateral breast implants clinically not visualized. Gastroenterology is following. Gen. surgery will be consulted. chest pain or shortness of breath. no headache or dizziness or lightheadedness. 10/21/2018 Patient denied any complaints of nausea and vomiting today. Abdominal pain improved. Patient was seen by general surgery and is planning for cholecystectomy tomorrow due to fold in gallbladder at infundibulum And clinical cholecystitis. No fever no chills. No chest pain or shortness of breath. No headache or di zziness or lightheadedness. Patient is scheduled for surgery tomorrow. Nothing by mouth after midnight. Subjective 10/22/2018, Mr. present care of the patient This is a pleasant 78 years old female with no significant past medical history presents with recurrent nausea vomiting,Ultrasound of the abdomen showed borderline caliber to the main pancreatic duct at 2.8 mm and dilated bile duct at 8 mm. MRCP showed dilated distal common bile duct. pt found to have gall bladder disease and surgery team did laprascopic cholecystectomy and today is post op day #1, pt with expected post op pain , on management. Objective - Vital Signs Vital signs: Vital Signs Temp 97.6 F 10/22/18 11:47 Pulse 60 10/22/18 12:00 Resp 16 10/22/18 12:00 BP 137/82 10/22/18 12:00 Pulse Ox 98 10/22/18 12:00 Intake & Output 10/21/18 10/22/18 10/22/18 18:59 06:59 18:59 Intake Total 0 1300 Output Total 5 Balance 0 1295 Intake: IV 1300 Oral 0 Output: Estimated Blood Loss 5 Other: # Voids 3 - Labs CBC & Chem 7: 10/22/18 15:23 10/22/18 15:23 Assessment and Plan Assessment: Intractable nausea vomiting and dilated bile duct.. MRCP showed distal dilated common bile left. Acute cholecystitis status post laproscopic cholecystectomy History of IBS Anxiety/depression/panic disorder Nicotine addiction and marijuana use with medical card. DVT prophylaxis Plan: pt is status post cholecystectomy . continue with pain management and iv hydratino. Continue with PPI IV daily. Gastroenterology and general surgery is following. Further recommendations based on the clinical course. Smoking sedation has been counseled extensively.
[2018-10-23] MEDS: HEPARIN SODIUM,PORCINE 5,000 UNIT/ML 1 ML VIAL SQ SCH ×3 (00:20→17:18)
[2018-10-23] MEDS: KETOROLAC 30 MG/ML 1 ML VIAL IVP PRN ×3 (01:43→20:49)
[2018-10-23] MEDS: HYDROmorphone 1 MG/ML 1 ML SYRINGE IVP PRN ×7 (01:44→20:51)
[2018-10-23] MEDS: ONDANSETRON 4 MG/2 ML VIAL IVP PRN (06:03)
[2018-10-23] MEDS: diphenhydrAMINE 50 MG/ML 1 ML VIAL IVP PRN (08:42)
[2018-10-23] MEDS: PANTOPRAZOLE 40 MG/10 ML VIAL IV SCH (09:59)
[2018-10-23] MEDS: SUCRALFATE 1 GM TAB PO SCH ×4 (10:01→20:53)
[2018-10-23] MEDS: LACTOBACILLUS ACIDOPH & BULGAR 1 EACH PACKET PO SCH (10:01)
[2018-10-23] MEDS ORDERED: BISACODYL 10 MG SUPP RECTAL STA (11:47)
[2018-10-23] MEDS: SERTRALINE 25 MG TAB PO SCH (12:20)
--- NOTE | 2018-10-23 13:28 | P.PN ---
Subjective Progress Note Date: 10/23/18 CHIEF COMPLAINT: Abdominal pain HISTORY OF PRESENT ILLNESS: Patient is status post robotic cholecystectomy with Dr. Crook. POD #1. Patient reports continued nausea with an episode of emesis this morning. She reports she tolerated clear liquid diet for breakfast. Reports constipation and states she has not had a bowel movement in about 5 days. PHYSICAL EXAM: VITAL SIGNS: Currently stable. GENERAL: Well-developed in no acute distress. HEENT: No sclera icterus. Extraocular movements grossly intact. Moist buccal mucosa. Head is atraumatic, normocephalic. Hears conversational speech. No nasal drainage. NECK: Supple without lymphadenopathy. CHEST: Non-labored respirations and equal bilateral excursions. CARDIOVASCULAR: Regular rate with regular rhythm. Palpable 2+ radial pulses. ABDOMEN: Soft. Nondistended. Appropriate surgical tenderness. Surgical incision sites clean dry and intact without bleeding or signs of infection. MUSCULOSKELETAL: No clubbing, cyanosis or edema. NEUROLOGIC: No focal or lateralizing signs. Cranial nerves II through XII grossly intact. PSYCH: Appropriate affect. Alert and oriented to person, place and time. SKIN: Well perfused. Good skin turgor. ASSESSMENT: 1. Cholecystitis, status post robotic cholecystectomy 2. Intractable nausea and vomiting 3. Constipation PLAN: 1. Advance diet to full liquid 2. Patient states she does not tolerate [place]. Patient may be discharged home on Tylenol PRN 3. Dulcolax suppository 1 4. Stable for discharge home today 5. Follow up with Dr. Crook outpatient Nurse practitioner note has been reviewed by physician. Signing provider agrees with the documented findings, assessment, and plan of care. Objective - Vital Signs Vital signs: Vital Signs Temp 98.8 F 10/23/18 09:07 Pulse 62 10/23/18 09:07 Resp 16 10/23/18 09:07 BP 125/76 10/23/18 09:07 Pulse Ox 96 10/23/18 09:07 Intake & Output 10/22/18 10/23/18 10/23/18 18:59 06:59 18:59 Intake Total 1300 370 Output Total 5 Balance 1295 370 Intake: IV 1300 Oral 370 Output: Estimated Blood Loss 5 Other: # Voids 1 0 - Labs CBC & Chem 7: 10/22/18 15:23 10/22/18 15:23 Labs: Abnormal Lab Results - Last 24 Hours (Table) 10/22/18 10/22/18 Range/Units 15:23 15:23 Neutrophils # 8.2 H (1.3-7.7) k/uL Chloride 109 H (98-107) mmol/L Assessment and Plan (1) Cholecystitis Current Visit: Yes Status: Acute Code(s): K81.9 - CHOLECYSTITIS, UNSPECIFIED SNOMED Code(s): 81952691 (2) Intractable nausea and vomiting Current Visit: Yes Status: Acute Code(s): R11.2 - NAUSEA WITH VOMITING, UNSPECIFIED SNOMED Code(s): 653703536
--- NOTE | 2018-10-23 14:15 | P.PN ---
Subjective From the medical records Patient is a 38-year-old female with a known history of anxiety/depression and panic disorder, nicotine addiction and marijuana use came to ER with the complaints of intractable nausea and vomiting intermittently since January 2018. 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 Patient has been having bilious vomiting. Unable to tolerate any oral diet. Patient was diagnosed with IBS. Patient was seen by Dr. Barry in the GI clinic. Patient says that she had easy and colonoscopy. Patient is also having epigastric abdominal pain. No fever no chills. No chest pain or shortness of breath. She does have chronic back pain and has medical marijuana card, she smokes marijuana on a regular basis. Ultrasound of the abdomen showed borderline caliber to the main pancreatic duct at 2.8 mm and dilated bile duct at 8 mm. 10/20/2018 Patient is still complaining of nausea and episodes of vomiting. Also having abdominal pain. Slightly improved compared to yesterday. MRCP was done today which showed dilated distal common bile duct. Bilateral breast implants clinically not visualized. Gastroenterology is following. Gen. surgery will be consulted. chest pain or shortness of breath. no headache or dizziness or lightheadedness. 10/21/2018 Patient denied any complaints of nausea and vomiting today. Abdominal pain improved. Patient was seen by general surgery and is planning for cholecystectomy tomorrow due to fold in gallbladder at infundibulum And clinical cholecystitis. No fever no chills. No chest pain or shortness of breath. No headache or di zziness or lightheadedness. Patient is scheduled for surgery tomorrow. Nothing by mouth after midnight. Subjective 10/22/2018, This is a pleasant 78 years old female with no significant past medical history presents with recurrent nausea vomiting,Ultrasound of the abdomen showed borderline caliber to the main pancreatic duct at 2.8 mm and dilated bile duct at 8 mm. MRCP showed dilated distal common bile duct. pt found to have gall bladder disease and surgery team did laprascopic cholecystectomy and today is post op day #1, pt with expected post op pain , on management. 10/23/2018 Patient vomited one time this morning, she still have some pain at the surgical site at RUQ, she is passing gases but no bowel movement, surgical team thinks she can be discharged however patient is having advance her diet yet. We are going to advance her diet from liquid to soft/regular diet. Of her Benadryl when necessary for nausea vomiting. Pain management. Patient agrees and wants to stay one more night for monitoring. Possible discharge in 24-48 hours, if her symptoms controlled and patient tolerates diet Objective - Vital Signs Vital signs: Vital Signs Temp 98.3 F 10/23/18 12:34 Pulse 58 L 10/23/18 12:34 Resp 20 10/23/18 12:34 BP 114/73 10/23/18 12:34 Pulse Ox 95 10/23/18 12:34 Intake & Output 10/22/18 10/23/18 10/23/18 18:59 06:59 18:59 Intake Total 1300 370 Output Total 5 Balance 1295 370 Intake: IV 1300 Oral 370 Output: Estimated Blood Loss 5 Other: # Voids 1 0 - Exam GENERAL: The patient is alert and oriented x3, not in any acute distress. Well developed, well nourished. HEENT: Pupils are round and equally reacting to light. EOMI. No scleral icterus. No conjunctival pallor. Normocephalic, atraumatic. No pharyngeal erythema. No thyromegaly. CARDIOVASCULAR: S1 and S2 present. No murmurs, rubs, or gallops. PULMONARY: Chest is clear to auscultation, no wheezing or crackles. -ABDOMEN: Soft, nontender, surgical site tenderness are RUQ, normoactive bowel sounds. No palpable organomegaly. Once for laparoscopy procedure are healing MUSCULOSKELETAL: No joint swelling or deformity. EXTREMITIES: No cyanosis, clubbing, or pedal edema. NEUROLOGICAL: Gross neurological examination did not reveal any focal deficits. SKIN: No rashes. - Labs CBC & Chem 7: 10/22/18 15:23 10/22/18 15:23 Labs: Abnormal Lab Results - Last 24 Hours (Table) 10/22/18 10/22/18 Range/Units 15:23 15:23 Neutrophils # 8.2 H (1.3-7.7) k/uL Chloride 109 H (98-107) mmol/L Assessment and Plan Assessment: Intractable nausea vomiting and dilated bile duct.. MRCP showed distal dilated common bile left. Acute cholecystitis status post laproscopic cholecystectomy History of IBS Anxiety/depression/panic disorder Nicotine addiction and marijuana use with medical card. DVT prophylaxis Plan: pt is status post cholecystectomy . continue with pain management and iv hydratino. Continue with PPI IV daily. Gastroenterology and general surgery is following. Further recommendations based on the clinical course. Smoking sedation has been counseled extensively.
[2018-10-23] MEDS: SODIUM CHLORIDE 0.9% 1,000 ML IV SCH (17:19)
--- NOTE | 2018-10-23 17:34 | P.PN ---
Progress Note - Text Progress Note Date: 10/23/18 Patient does report some improvement of her right upper quadrant pain. She is sore from recent surgery. I did re-address pre-surgical conversation that cholecystectomy may not resolve her projectile emesis. She had vomiting this morning. Additionally, she has severe chronic constipation of weekly bowel movements. Recommend rectal suppositories as oral cathartics will worsen nausea. Further management as outpatient also addressed for which she was agreeable with the care plan.
[2018-10-23] MEDS: MIRTAZAPINE 15 MG TAB PO SCH (20:53)
[2018-10-24] MEDS: HEPARIN SODIUM,PORCINE 5,000 UNIT/ML 1 ML VIAL SQ SCH ×2 (00:04→08:25)
[2018-10-24] MEDS: diphenhydrAMINE 50 MG/ML 1 ML VIAL IVP PRN (01:57)
[2018-10-24] MEDS: HYDROmorphone 1 MG/ML 1 ML SYRINGE IVP PRN ×3 (02:01→09:41)
[2018-10-24] MEDS: ONDANSETRON 4 MG/2 ML VIAL IVP PRN (04:45)
[2018-10-24] MEDS: SUCRALFATE 1 GM TAB PO SCH ×2 (08:24→12:27)
[2018-10-24] MEDS: SODIUM CHLORIDE 0.9% 1,000 ML IV SCH (08:30)
[2018-10-24] MEDS: LACTOBACILLUS ACIDOPH & BULGAR 1 EACH PACKET PO SCH (09:36)
[2018-10-24] MEDS: SERTRALINE 25 MG TAB PO SCH (09:36)
[2018-10-24] MEDS: PANTOPRAZOLE 40 MG/10 ML VIAL IV SCH (09:36)
[2018-10-24] MEDS ORDERED: traMADol 50 MG TAB PO PRN (11:25)
[2018-10-24] MEDS ORDERED: TRIMETHOBENZAMIDE 300 MG CAP PO PRN (11:45)
[2018-10-24] MEDS ORDERED: diphenhydrAMINE 25 MG CAP PO PRN (12:01)
[2018-10-24] MEDS: KETOROLAC 30 MG/ML 1 ML VIAL IVP PRN (12:30)
[2018-10-24 12:33] VITALS: BP 118/73; PULSE 70; RESP 18; TEMP 98.8
--- NOTE | 2018-10-24 13:24 | P.PN ---
Progress Note - Text Progress Note Date: 10/24/18 Patient remains stable for discharge from surgical standpoint. She may follow up outpatient with Dr. Crook outpatient for further workup of chronic nausea and vomiting.
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
[2018-10-24] MEDS ORDERED: PROPRANOLOL 10 MG TAB PO SCH (21:00)
[2018-10-24] MEDS ORDERED: ARIPiprazole 5 MG TAB PO SCH (21:00)
--- NOTE | 2018-10-24 22:21 | P.DS ---
Providers Date of admission: 10/21/18 16:09 Attending physician: Jenae Matt Consults: 10/21/18 09:06 Consult Physician Routine Consulting Provider: Nelia Crook Consult Reason/Comments: abd pain and n/v Do you want consulting provider notified?: Yes 10/24/18 11:23 Consult Physician Routine Consulting Provider: Анна Arthur Consult Reason/Comments: extreme anxiety, feelings of impending doom. Do you want consulting provider notified?: Yes Primary care physician: Physician Nonstaff Hospital Course: Diagnoses: -Intractable nausea vomiting for the last few days prior to admission, on the top of history of chronic nausea for about 8 months per patient. 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 EGD and colonoscopy done 6 months ago was unremarkable -Acute cholecystitis status post laproscopic cholecystectomy -History of severe anxiety -marijuana use with medical card for her chronic low back pain. Patient is counseled and she agrees to quit marijuana -dilated bile duct. MRCP showed distal dilated common bile left. -History of IBS -Anxiety/depression/panic disorder -Nicotine addiction Hospital course: Patient is a 38-year-old female with a known history of anxiety/depression and panic disorder, nicotine addiction and marijuana use came to ER with the complaints of intractable nausea and vomiting intermittently since January 2018. 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 However nausea become more severe and intractable associated with several bouts of vomiting upon admission. On admissions patient had abdominal imaging which showed biliary delectations was completely normal LFT, no indication for any biliary obstruction and no need for any endoscopy or intervention as per GI team. However upon surgical evaluation, patient suspected to have gallbladder and biliary disease, and she underwent laparoscopic cholecystectomy. Patient tolerated the procedure well and her symptoms improved and better controlled with antiemetic medication. Patient uses marijuana for her low back pain and she uses medical card for it. Patient suspected to have an appendectomyemesis syndrome and she counseled against using marijuana more and patient agrees to quit using cannabinoids. Also marijuana might contributed to her psychiatric symptoms. Patient has been feeling some psychiatric suicidal thoughts but without plans on tension and she was asking to see a psychiatrist who evaluated the patient also for impending doom and he recommended outpatient follow-up,the psychiatrist adjusted her medication and sent them to the pharmacy. please refer to the psych note for today for more details On the day of discharge patient denies chest pain or dyspnea. Abdominal pain is minimal at the surgical site. Diet is advanced and tolerated well by the patient. No more vomiting. Nausea controlled with medication. i offered to the pt one more day for monitoring her nausea but she wants to go home " my home make my nausea feeling better" . pt tolerated soft/regular diet well and is eager to go home Patient was cleared for discharge by all consultants including surgery, gastroenterology and psychiatry Problems and management plan were discussed with the patient and he verbalized understanding and acceptance Patient was found stable and can be discharged home however he needs follow-up as an outpatient. pt agrees with appointment and their timing made for her with GI , surgery and pcp . clinical social work aide provided information for psych f/u . pt agrees with the plan Gen: patient is a AAOx3, no distress CVS: S1-S2, RRR, no murmur Lungs: B/L CTA, no wheezing Abdomen: soft, no distention, no tenderness, positive bowel sounds. Laparoscopic sites wounds are healing Extremity: no leg edema or induration Time spent more than 35 minutes Patient Condition at Discharge: Stable Plan - Discharge Summary Discharge Rx Participant: Yes New Discharge Prescriptions: New Trimethobenzamide [Tigan] 300 mg PO TID PRN #6 cap PRN Reason: Nausea And Vomiting Sertraline [Zoloft] 50 mg PO DAILY #60 tab ARIPiprazole [Abilify] 5 mg PO HS #14 tab Propranolol [Inderal] 10 mg PO BID #28 tab Sertraline [Zoloft] 50 mg PO DAILY #14 tab Continue L.acidoph,Paracasei, B.lactis [Probiotic] 1 cap PO DAILY Omeprazole [PriLOSEC] 20 mg PO AC-BRKFST Morphine Sulfate Ir [MSIR] 15 mg PO QID Sucralfate [Carafate] 1 gm PO ACHS Discontinued Sertraline HCl [Zoloft] 25 mg PO DAILY Mirtazapine [Remeron] 15 mg PO HS No Action Perphenazine [Trilafon] 2 mg PO BID Prochlorperazine Maleate 5 mg PO Q4H PRN PRN Reason: Nausea Discharge Medication List L.acidoph,Paracasei, B.lactis [Probiotic] 1 cap PO DAILY 10/19/18 [History] Morphine Sulfate Ir [MSIR] 15 mg PO QID 10/19/18 [History] Omeprazole [PriLOSEC] 20 mg PO AC-BRKFST 10/19/18 [History] Perphenazine [Trilafon] 2 mg PO BID 10/19/18 [History] Prochlorperazine Maleate 5 mg PO Q4H PRN 10/19/18 [History] Sucralfate [Carafate] 1 gm PO ACHS 10/19/18 [History] ARIPiprazole [Abilify] 5 mg PO HS #14 tab 10/24/18 [Rx] Propranolol [Inderal] 10 mg PO BID #28 tab 10/24/18 [Rx] Sertraline [Zoloft] 50 mg PO DAILY #14 tab 10/24/18 [Rx] Sertraline [Zoloft] 50 mg PO DAILY #60 tab 10/24/18 [Rx] Trimethobenzamide [Tigan] 300 mg PO TID PRN #6 cap 10/24/18 [Rx] Follow up Appointment(s)/Referral(s): Diana Hood PAC [REFERRING] - 11/01/18 2:30 pm (You have an appointment with Diana Hood on October at 2:30 pm.) Nelia Crook MD [STAFF PHYSICIAN] - 11/08/18 9:00 am (You have an appointment with Dr Crook on October at 9:00 am.) Daisy Franklin MD [STAFF PHYSICIAN] - 10/30/18 2:15 pm (You have a follow up appointment with Dr Franklin at the [facility] office on Tuesday, October 30, 2018 at 2:15 pm.) Patient Instructions/Handouts: *Surgery [facility] - Laparoscopic Cholecystectomy Discharge Instructions, Mood Disorders (GEN), Generalized Anxiety Disorder (GEN) Activity/Diet/Wound Care/Special Instructions: Tylenol as needed for pain Light activity You may shower. No tub baths or soaking No lifting greater than 4 lbs for 4 weeks Good handwashing, drink plenty of fluids. No pools, ponds, lakes, or webb. Call Dr Crook if you develop a fever, chills, increase in pain, drainage from your incisions, or if you have any other questions or concerns. All of you follow up appointments have been set up. Please do your best to keep each appointment. Find a good summer novel and sit on the deck and relax!! Discharge Disposition: HOME SELF-CARE
[2018-10-25] MEDS ORDERED: PANTOPRAZOLE 40 MG TABLET PO SCH (09:00)
[2018-10-25] MEDS ORDERED: SERTRALINE 50 MG TAB PO SCH (09:00)
== END 2018-10-24 17:00 | disposition home or self-care (01) | DRG 419 ==
LOC: EC 07:38 → 4SSUR 10:40 → 6PED 10-20 06:36 → OBSVTOIN 10-21 16:09
PROVIDERS: ADMIT Internal Medicine; ATTEND Internal Medicine
PROC: 0FT44ZZ Resection of Gallbladder, Percutaneous Endoscopic Approach (ICD-10-PCS; principal; 2018-10-22 09:20)
PROC: 8E0W4CZ Robotic Assisted Procedure of Trunk Region, Percutaneous Endoscopic Approach (ICD-10-PCS; principal; 2018-10-22 09:20)
DX: K81.2 Acute cholecystitis with chronic cholecystitis (principal); F17.200 Nicotine dependence, unspecified, uncomplicated; F41.0 Panic disorder [episodic paroxysmal anxiety]; G89.29 Other chronic pain; K21.9 Gastro-esophageal reflux disease without esophagitis; K44.9 Diaphragmatic hernia without obstruction or gangrene; K58.1 Irritable bowel syndrome with constipation; K83.8 Other specified diseases of biliary tract; K86.89 Other specified diseases of pancreas; Z79.899 Other long term (current) drug therapy; Z88.5 Allergy status to narcotic agent; F12.988 Cannabis use, unspecified with other cannabis-induced disorder; Z81.8 Family history of other mental and behavioral disorders; Z81.1 Family history of alcohol abuse and dependence; Z81.3 Family history of other psychoactive substance abuse and dependence; F31.9 Bipolar disorder, unspecified
CPT/HCPCS: 36415; 74181; 76705; 80053; 81003; 81025; 82150; 83690; 85025; 85610; 85730; 88304; 96361; 96374; 96375; 99285

== ENCOUNTER 2021-05-28 12:12 | Inpatient (IN) | payer MEDICARE ==
[2021-05-28] MEDS ORDERED: SODIUM CHLORIDE 0.9% 2,000 ML IV STA (12:57)
[2021-05-28] MEDS ORDERED: ONDANSETRON 4 MG/2 ML VIAL IVP STA (12:57)
--- NOTE | 2021-05-28 13:02 | ED ---
General Adult HPI - General Chief complaint: Altered Mental Status Stated complaint: mental health Time Seen by Provider: 05/28/21 12:15 Source: patient, family, RN notes reviewed, old records reviewed Mode of arrival: ambulatory Limitations: no limitations - History of Present Illness Initial comments: This is a 41-year-old female presents emergency Department stating she is suicidal. Patient states about 10 days ago she had some financial issue arise and since then she has been vomiting and been unable to keep any food or fluids down. Patient states she's developed some epigastric abdominal pain since. Patient states this has happened in the past when she gets severe anxiety but he normally goes away after a few days but since that financial burden continues she continues to have the anxiety is suicidal thoughts and the vomiting. Patient denies any fever chills. Patient states she was constipated and took a bunch of laxatives and enemas and she has been able to go. Patient denies any chest pain or difficulty breathing. Patient denies any dysuria hematuria urinary frequency. - Related Data Home Medications Medication Instructions Recorded Confirmed ALPRAZolam [Xanax] 1 mg PO BID 05/28/21 05/28/21 Benztropine Mesylate [Cogentin] 1 mg PO BID 05/28/21 05/28/21 Dexmethylphenidate HCl [Focalin] 10 mg PO BID 05/28/21 05/28/21 Mirtazapine [Remeron] 15 mg PO HS 05/28/21 05/28/21 Morphine Sulfate Ir [MSIR] 30 mg PO QID 05/28/21 05/28/21 Ziprasidone [Geodon] 20 mg PO DAILY 05/28/21 05/28/21 Ziprasidone [Geodon] 40 mg PO HS 05/28/21 05/28/21 Previous Rx's Medication Instructions Recorded Propranolol [Inderal] 10 mg PO BID #28 tab 10/24/18 Sertraline [Zoloft] 50 mg PO DAILY #14 tab 10/24/18 Allergies Allergy/AdvReac Type Severity Reaction Status Date / Time acetaminophen [From Vicodin] AdvReac Nausea & Verified 05/28/21 12:51 Vomiting fentanyl AdvReac Nausea & Verified 05/28/21 12:51 Vomiting hydrocodone [From Vicodin] AdvReac Nausea & Verified 05/28/21 12:51 Vomiting Review of Systems ROS Statement: Those systems with pertinent positive or pertinent negative responses have been documented in the HPI. ROS Other: All systems not noted in ROS Statement are negative. Past Medical History Past Medical History: No Reported History History of Any Multi-Drug Resistant Organisms: None Reported Past Surgical History: No Surgical Hx Reported Additional Past Surgical History / Comment(s): back surgery Past Psychological History: Anxiety, Depression, Panic Disorder Smoking Status: Never smoker Past Alcohol Use History: None Reported Past Drug Use History: None Reported - Past Family History Mother Family Medical History: No Reported History General Exam - General Exam Comments Initial Comments: GENERAL: Patient is well-developed and well-nourished. Patient is nontoxic and well- hydrated and is in mild distress. ENT: Neck is soft and supple. No significant lymphadenopathy is noted. Oropharynx is clear. Moist mucous membranes. Neck has full range of motion without eliciting any pain. EYES: The sclera were anicteric and conjunctiva were pink and moist. Extraocular movements were intact and pupils were equal round and reactive to light. Eyelids were unremarkable. PULMONARY: Unlabored respirations. Good breath sounds bilaterally. No audible rales rhon chi or wheezing was noted. CARDIOVASCULAR: There is a regular rate and rhythm without any murmurs gallops or rubs. ABDOMEN: Mild epigastric abdominal tenderness SKIN: Skin is clear with no lesions or rashes and otherwise unremarkable. NEUROLOGIC: Patient is alert and oriented x3. Cranial nerves II through XII are grossly intact. Motor and sensory are also intact. Normal speech, volume and content. Symmetrical smile. MUSCULOSKELETAL: Normal extremities with adequate strength and full range of motion. No lower extremity swelling or edema. No calf tenderness. LYMPHATICS: No significant lymphadenopathy is noted PSYCHIATRIC: Normal psychiatric evaluation. Limitations: no limitations Course Vital Signs 05/28/21 05/28/21 12:16 14:48 Temperature 98.2 F Pulse Rate 63 64 Respiratory 18 18 Rate Blood Pressure 123/89 113/66 O2 Sat by Pulse 98 99 Oximetry Medical Decision Making - Medical Decision Making EKG shows marked sinus bradycardia at 46 bpm SC interval is 124 QRS is 84 QT interval 500 QTC is 437. Patient's EKG shows no ST segment elevation or depression. EPS evaluated the patient and she was admitted after I medically cleared her. Patient had no more vomiting in the emergency department. Patient denied methamphetamine use - Lab Data Result diagrams: 05/28/21 13:07 05/28/21 13:07 Lab Results 05/28/21 05/28/21 05/28/21 Range/Units 12:48 13:07 13:07 WBC 9.2 (3.8-10.6) k/uL RBC 4.56 (3.80-5.40) m/uL Hgb 14.4 (11.4-16.0) gm/dL Hct 41.0 (34.0-46.0) % MCV 90.0 (80.0-100.0) fL MCH 31.6 (25.0-35.0) pg MCHC 35.1 (31.0-37.0) g/dL RDW 13.6 (11.5-15.5) % Plt Count 415 (150-450) k/uL MPV 6.9 Neutrophils % 72 % Lymphocytes % 21 % Monocytes % 5 % Eosinophils % 1 % Basophils % 0 % Neutrophils # 6.6 (1.3-7.7) k/uL Lymphocytes # 1.9 (1.0-4.8) k/uL Monocytes # 0.4 (0-1.0) k/uL Eosinophils # 0.1 (0-0.7) k/uL Basophils # 0.0 (0-0.2) k/uL Sodium (137-145) mmol/L Potassium (3.5-5.1) mmol/L Chloride (98-107) mmol/L Carbon Dioxide (22-30) mmol/L Anion Gap mmol/L BUN (7-17) mg/dL Creatinine (0.52-1.04) mg/dL Est GFR (CKD-EPI)AfAm (>60 ml/min/1.73 sqM) Est GFR (CKD-EPI)NonAf (>60 ml/min/1.73 sqM) Glucose (74-99) mg/dL Plasma Lactic Acid [place] (0.7-2.0) mmol/L Calcium (8.4-10.2) mg/dL Total Bilirubin (0.2-1.3) mg/dL AST (14-36) U/L ALT (4-34) U/L Alkaline Phosphatase (38-126) U/L Total Protein (6.3-8.2) g/dL Albumin (3.5-5.0) g/dL Amylase (30-110) U/L Lipase (23-300) U/L Urine Color Yellow Urine Appearance Cloudy H (Clear) Urine pH 6.0 (5.0-8.0) Ur Specific [place] 1.025 (1.001-1.035) Urine Protein 1+ H (Negative) Urine Glucose (UA) Negative (Negative) Urine Ketones 1+ H (Negative) Urine Blood Moderate H (Negative) Urine Nitrite Negative (Negative) Urine Bilirubin Negative (Negative) Urine Urobilinogen <2.0 (<2.0) mg/dL Ur Leukocyte Esterase Large H (Negative) Urine RBC 17 H (0-5) /hpf Urine WBC >182 H (0-5) /hpf Ur Squamous Epith Cells 8 H (0-4) /hpf Urine Mucus Many H (None) /hpf Urine HCG, Qual (Not Detectd) Urine Opiates Screen (NotDetected) Ur Oxycodone Screen (NotDetected) Urine Methadone Screen (NotDetected) Ur Propoxyphene Screen (NotDetected) Ur Barbiturates Screen (NotDetected) U Tricyclic Antidepress (NotDetected) Ur Phencyclidine Scrn (NotDetected) Ur Amphetamines Screen (NotDetected) U Methamphetamines Scrn (NotDetected) U Benzodiazepines Scrn (NotDetected) Urine Cocaine Screen (NotDetected) U Marijuana (THC) Screen (NotDetected) Coronavirus (PCR) Not Detected (Not Detectd) 05/28/21 05/28/21 05/28/21 Range/Units 13:07 13:07 13:07 WBC (3.8-10.6) k/uL RBC (3.80-5.40) m/uL Hgb (11.4-16.0) gm/dL Hct (34.0-46.0) % MCV (80.0-100.0) fL MCH (25.0-35.0) pg MCHC (31.0-37.0) g/dL RDW (11.5-15.5) % Plt Count (150-450) k/uL MPV Neutrophils % % Lymphocytes % % Monocytes % % Eosinophils % % Basophils % % Neutrophils # (1.3-7.7) k/uL Lymphocytes # (1.0-4.8) k/uL Monocytes # (0-1.0) k/uL Eosinophils # (0-0.7) k/uL Basophils # (0-0.2) k/uL Sodium 138 (137-145) mmol/L Potassium 3.9 (3.5-5.1) mmol/L Chloride 106 (98-107) mmol/L Carbon Dioxide 20 L (22-30) mmol/L Anion Gap 12 mmol/L BUN 10 (7-17) mg/dL Creatinine 0.86 (0.52-1.04) mg/dL Est GFR (CKD-EPI)AfAm >90 (>60 ml/min/1.73 sqM) Est GFR (CKD-EPI)NonAf 85 (>60 ml/min/1.73 sqM) Glucose 111 H (74-99) mg/dL Plasma Lactic Acid [place] 1.5 (0.7-2.0) mmol/L Calcium 10.2 (8.4-10.2) mg/dL Total Bilirubin 0.7 (0.2-1.3) mg/dL AST 36 (14-36) U/L ALT 59 H (4-34) U/L Alkaline Phosphatase 125 (38-126) U/L Total Protein 8.2 (6.3-8.2) g/dL Albumin 4.8 (3.5-5.0) g/dL Amylase 54 (30-110) U/L Lipase 104 (23-300) U/L Urine Color Urine Appearance (Clear) Urine pH (5.0-8.0) Ur Specific [place] (1.001-1.035) Urine Protein (Negative) Urine Glucose (UA) (Negative) Urine Ketones (Negative) Urine Blood (Negative) Urine Nitrite (Negative) Urine Bilirubin (Negative) Urine Urobilinogen (<2.0) mg/dL Ur Leukocyte Esterase (Negative) Urine RBC (0-5) /hpf Urine WBC (0-5) /hpf Ur Squamous Epith Cells (0-4) /hpf Urine Mucus (None) /hpf Urine HCG, Qual Not Detected (Not Detectd) Urine Opiates Screen (NotDetected) Ur Oxycodone Screen (NotDetected) Urine Methadone Screen (NotDetected) Ur Propoxyphene Screen (NotDetected) Ur Barbiturates Screen (NotDetected) U Tricyclic Antidepress (NotDetected) Ur Phencyclidine Scrn (NotDetected) Ur Amphetamines Screen (NotDetected) U Methamphetamines Scrn (NotDetected) U Benzodiazepines Scrn (NotDetected) Urine Cocaine Screen (NotDetected) U Marijuana (THC) Screen (NotDetected) Coronavirus (PCR) (Not Detectd) 05/28/21 Range/Units 13:07 WBC (3.8-10.6) k/uL RBC (3.80-5.40) m/uL Hgb (11.4-16.0) gm/dL Hct (34.0-46.0) % MCV (80.0-100.0) fL MCH (25.0-35.0) pg MCHC (31.0-37.0) g/dL RDW (11.5-15.5) % Plt Count (150-450) k/uL MPV Neutrophils % % Lymphocytes % % Monocytes % % Eosinophils % % Basophils % % Neutrophils # (1.3-7.7) k/uL Lymphocytes # (1.0-4.8) k/uL Monocytes # (0-1.0) k/uL Eosinophils # (0-0.7) k/uL Basophils # (0-0.2) k/uL Sodium (137-145) mmol/L Potassium (3.5-5.1) mmol/L Chloride (98-107) mmol/L Carbon Dioxide (22-30) mmol/L Anion Gap mmol/L BUN (7-17) mg/dL Creatinine (0.52-1.04) mg/dL Est GFR (CKD-EPI)AfAm (>60 ml/min/1.73 sqM) Est GFR (CKD-EPI)NonAf (>60 ml/min/1.73 sqM) Glucose (74-99) mg/dL Plasma Lactic Acid [place] (0.7-2.0) mmol/L Calcium (8.4-10.2) mg/dL Total Bilirubin (0.2-1.3) mg/dL AST (14-36) U/L ALT (4-34) U/L Alkaline Phosphatase (38-126) U/L Total Protein (6.3-8.2) g/dL Albumin (3.5-5.0) g/dL Amylase (30-110) U/L Lipase (23-300) U/L Urine Color Urine Appearance (Clear) Urine pH (5.0-8.0) Ur Specific [place] (1.001-1.035) Urine Protein (Negative) Urine Glucose (UA) (Negative) Urine Ketones (Negative) Urine Blood (Negative) Urine Nitrite (Negative) Urine Bilirubin (Negative) Urine Urobilinogen (<2.0) mg/dL Ur Leukocyte Esterase (Negative) Urine RBC (0-5) /hpf Urine WBC (0-5) /hpf Ur Squamous Epith Cells (0-4) /hpf Urine Mucus (None) /hpf Urine HCG, Qual (Not Detectd) Urine Opiates Screen Detected H (NotDetected) Ur Oxycodone Screen Not Detected (NotDetected) Urine Methadone Screen Not Detected (NotDetected) Ur Propoxyphene Screen Not Detected (NotDetected) Ur Barbiturates Screen Not Detected (NotDetected) U Tricyclic Antidepress Not Detected (NotDetected) Ur Phencyclidine Scrn Not Detected (NotDetected) Ur Amphetamines Screen Detected H (NotDetected) U Methamphetamines Scrn Detected H (NotDetected) U Benzodiazepines Scrn Detected H (NotDetected) Urine Cocaine Screen Not Detected (NotDetected) U Marijuana (THC) Screen Detected H (NotDetected) Coronavirus (PCR) (Not Detectd) Disposition Clinical Impression: Methamphetamine abuse, Suicidal ideations, Acute vomiting Disposition: ADMITTED IP TO THIS [facility] Time of Disposition: 18:24
[2021-05-28 13:39] LABS: Basophils % (A) 0 %; Eosinophils # (A) 0.1 k/uL (0-0.7); Eosinophils % (A) 1 %; HGB 14.4 gm/dL (11.4-16.0); Lymphocytes # (A) 1.9 k/uL (1.0-4.8); Lymphocytes % (A) 21 %; MCH 31.6 pg (25.0-35.0); MCHC 35.1 g/dL (31.0-37.0); Mean Platelet Volume 6.9; Monocytes # (A) 0.4 k/uL (0-1.0); Monocytes % (A) 5 %; Neutrophils # (A) 6.6 k/uL (1.3-7.7); Neutrophils % (A) 72 %; Platelet Count 415 k/uL (150-450); RBC 4.56 m/uL (3.80-5.40); RDW 13.6 % (11.5-15.5); WBC 9.2 k/uL (3.8-10.6)
[2021-05-28 13:47] LABS: ALT 59 U/L (4-34); AST 36 U/L (14-36); African American GFR (CKD) >90 (>60 ml/min/1.73 sqM); Albumin 4.8 g/dL (3.5-5.0); Alkaline Phosphatase 125 U/L (38-126); Amylase 54 U/L (30-110); Anion Gap 12 mmol/L; Blood Urea Nitrogen 10 mg/dL (7-17); Calcium 10.2 mg/dL (8.4-10.2); Carbon Dioxide 20 mmol/L (22-30); Chloride 106 mmol/L (98-107); Glucose 111 mg/dL (74-99); Lipase 104 U/L (23-300); Non-African American GFR(CKD) 85 (>60 ml/min/1.73 sqM); Potassium 3.9 mmol/L (3.5-5.1); Sodium 138 mmol/L (137-145); Total Bilirubin 0.7 mg/dL (0.2-1.3); Total Protein 8.2 g/dL (6.3-8.2)
[2021-05-28 13:57] LABS: Appearance,Urine Cloudy (Clear); Bilirubin,Urine Negative (Negative); Blood,Urine Moderate (Negative); Color,Urine Yellow; Glucose,Urine (UA) Negative (Negative); Ketones,Urine 1+ (Negative); Leukocyte Esterase,Urine Large (Negative); Mucus,Urine Many /hpf; Nitrite,Urine Negative (Negative); Protein,Urine 1+ (Negative); RBC,Urine 17 /hpf (0-5); Specific Gravity,Urine 1.025 (1.001-1.035); Squamous Epithelial Cell,Urine 8 /hpf (0-4); Urobilinogen,Urine <2.0 mg/dL (<2.0); WBC,Urine >182 /hpf (0-5)
--- NOTE | 2021-05-28 13:57 | XR ---
KUB. HISTORY: Abdominal pain COMPARISON: None. TECHNIQUE: 2 upright views the abdomen were obtained. FINDINGS: The lung bases are clear. There is no free intraperitoneal air. Bowel gas pattern is nonspecific and there is no evidence of obstruction No suspicious abdominal or pelvic calcification is seen. There are postsurgical changes of lower lumbar spine fusion otherwise the osseous structures are inta ct. IMPRESSION: Nonspecific abdomen without evidence of free air or obstruction
[2021-05-28 14:00] LABS: Cocaine Screen,Urine Not Detected (NotDetected); Phencyclidine Screen,Urine Not Detected (NotDetected); Urn Cannabinoid Scrn Detected (NotDetected)
[2021-05-28 14:01] LABS: Amphetamine Screen,Urine Detected (NotDetected); Barbiturate Screen,Urine Not Detected (NotDetected); Benzodiazepines Screen,Urine Detected (NotDetected); Methadone Screen, Urine Not Detected (NotDetected); Opiate Screen,Urine Detected (NotDetected); Oxycodone Screen, Urine Not Detected (NotDetected); Tricyclic Antidepressant,Urine Not Detected (NotDetected)
[2021-05-28] MEDS ORDERED: cefTRIAXone IN SWFI 1,000 MG/10 ML SYRINGE IVP STA (14:31)
[2021-05-28] MEDS ORDERED: MAGNESIUM HYDROXIDE 2,400 MG/10 ML CUP PO PRN (16:51)
[2021-05-28] MEDS ORDERED: MAG HYDROX/AL HYDROX/SIMETH 30 ML CUP PO PRN (16:51)
[2021-05-28] MEDS ORDERED: HALOPERIDOL LACTATE 5 MG/ML 1 ML VIAL IM PRN (16:51)
[2021-05-28] MEDS ORDERED: LORazepam 1 MG TAB PO PRN (16:51)
[2021-05-28] MEDS ORDERED: LORazepam 2 MG/ML INJ IM PRN (16:58)
[2021-05-28] MEDS: LORazepam 0.5 MG TAB PO PRN (17:23)
[2021-05-28] MEDS: MORPHINE SULFATE IR 15 MG TABLET PO SCH ×2 (17:35→23:22)
[2021-05-28] MEDS: PROPRANOLOL 10 MG TAB PO SCH (21:30)
[2021-05-28] MEDS: MIRTAZAPINE 15 MG TAB PO SCH (21:30)
[2021-05-28] MEDS: BENZTROPINE MESYLATE 1 MG TAB PO SCH (21:30)
[2021-05-28] MEDS: ONDANSETRON 4 MG TAB PO PRN (23:23)
[2021-05-29] MEDS: LORazepam 0.5 MG TAB PO PRN (04:28)
[2021-05-29] MEDS: MORPHINE SULFATE IR 15 MG TABLET PO SCH ×4 (07:04→22:21)
[2021-05-29] MEDS: NICOTINE 14MG/24HR PATCH TRANSDERM SCH (08:43)
[2021-05-29] MEDS: ONDANSETRON 4 MG TAB PO PRN ×2 (08:44→22:20)
[2021-05-29] MEDS: BENZTROPINE MESYLATE 1 MG TAB PO SCH ×2 (08:44→22:20)
[2021-05-29] MEDS: PROPRANOLOL 10 MG TAB PO SCH ×2 (08:44→22:22)
[2021-05-29] MEDS ORDERED: SERTRALINE 50 MG TAB PO SCH (09:00)
[2021-05-29] MEDS: ZIPRASIDONE 20 MG CAP PO SCH (12:57)
--- NOTE | 2021-05-29 14:22 | HP ---
HISTORY AND PHYSICAL DATE OF SERVICE: 05/29/2021 IDENTIFYING DATA: The patient is a 41-year-old single female. She had been living independently, though is moving in with family. She presented to the ED for evaluation. CHIEF COMPLAINT: The patient had increasing suicide thoughts over the last few weeks. She also had GI distress with vomiting and not able to keep food or fluids down. She has high anxiety. HISTORY OF PRESENTING ILLNESS: The patient describes that she has diagnoses of agoraphobia and panic disorder. She is followed by Dr. Paez. In addition, she has chronic pain issues related to an injury she had during her time in the service. She has had a number of surgeries and says she has rods to support her spine. She says the chronic pain issues go back over [address] Ortiz as a pain specialist. Current medications that the patient is on include Geodon 20 mg in the morning, 40 mg in the evening, Zoloft 50 mg a day, Inderal 10 mg twice a day, morphine sulfate 30 mg 4 times a day, Remeron 15 mg at bedtime, Focalin 10 mg twice a day, Cogentin 1 mg twice a day and Xanax 1 mg twice a day. The patient states she has not taken Focalin for the last 10 days since she has had the GI upset. She states that the Geodon was prescribed for her agoraphobia and Inderal was prescribed for anxiety. Her current situation is that in the last few weeks she had a change in her compensation. She had been on SSDI and VA compensation. She lost income from changes in the regulation, where she did not meet criteria. She said that was highly stressful for her. She had been living independently, though now cannot afford it. She also says that about 10 days ago she started getting a lot of GI upset with vomiting and GI pain. She says she has had long-term problems with anxiety and difficulties being around others, especially in a situation where there are a lot of people. She says she has had significant depression over the years. She has not had a prior psychiatric hospitalization. She notes that she sees Dr. Paez for medications and states that she has been in therapy with Dr. Paez where she sees him once a month. She notes that she will be moving in with people that she identifies as her "parents," who are actually her aunt and uncle. She says they are very supportive and she is positive about the living situation that she will be moving to. The patient notes that she has been sleeping fair. Some night she sleeps better; others not so well. She does note high anxiety much of the time with panic symptoms. She denies any problems with hallucinations or delusional thinking. She believed that she may have some post-traumatic issues and can describe some flashback and triggers to distress. She was vague about the situation of developing suicidal thinking, in that when I interviewed her on the unit she said she was no longer suicidal and that that had just come into her thinking as part of the stress that she was experiencing, especially with the loss of income. She says she no longer has suicidal thinking and that she would not be in a situation where she would become suicidal because she would not want to "do that to my family." During the interview, the patient was very insistent on the idea that she needed to be discharged as soon as possible. She says that the environment here on the unit just is not for her, and she would be better off if she were home with her family. She is admitted for further evaluation. SUBSTANCE USE HISTORY: The patient reports no use of alcohol or street drugs. She smokes marijuana on a daily basis. She states that she has not smoked marijuana in the last 10 days since she has been getting sick. PAST MEDICAL HISTORY: The patient has significant orthopedic injuries to her back related to an injury while she was in the . She does not report other general health concerns. FAMILY AND SOCIAL HISTORY: The patient served in the active up until 2003. 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 She currently is not working. She says that she occupies herself with taking walks, doing activities around home and engaging in personal activities. She said her biologic parents are in [place]. The aunt and uncle, with whom she will be living, she describes as her "caregivers." MENTAL STATUS EXAM: Patient was quite restless. She gave fairly good eye contact. She answered questions with brief responses. Her thoughts were clear and coherent. She did not say a lot. Her affect was anxious and intense, her mood depressed. She was significantly distressed. There was no indication of thought disorder. Patient was denying thoughts of harm at the time of the interview. On cognitive exam, the patient was oriented and alert. She did not make an effort to answer formal cognitive questions but was able to provide specific information about recent events that was consistent with what was documented in the medical record. PHYSICAL EXAMINATION: As per medical consultation. ASSESSMENT: This 41-year-old female has long-term issues with anxiety and agoraphobia. There may be a post-traumatic issues as well. Her mental health condition is complicated by a long-term use of habit-forming medications, including opioids and benzodiazepines. She has immediate stress issues with income problems, while at the same time stating that she has supportive caretakers with whom she will be living. She describes this as a positive environment for her. Strengths include that she does appear to have a supportive and stable living circumstance. Weakness includes substance use issues and medication complications. DIAGNOSIS: 1. Major depression. 2. Agoraphobia. 3. Panic disorder. 4. Rule out post-traumatic stress disorder. 5. Orthopedic injuries to her spinal column. RECOMMENDATIONS: Patient will be admitted for comprehensive medical, psychiatric and psychosocial evaluation. We will engage the patient in individual and group therapeutic activities. I had an extensive discussion with the patient regarding medication issues. For starters, I discussed that the only medication she is on that has an indication for agoraphobia and panic would be Zoloft. I will increase the dose to 100 mg a day. I discussed that she may need to be titrated up further. We discussed that efficacy may be around the 65% range, so she may or may not respond to Zoloft once it reaches the higher-end doses. I discussed that Geodon, which she said was indicated for agoraphobia, does not have that indication, though potentially may augment her antidepressant. Whether or not there is some benefit to possible PTSD issues remains to be seen. We discussed that Geodon may cause significant neuromuscular issues and may in fact be aggravating some of her back pain issues. Next I discussed that long- term use of Xanax has the significant likelihood to intensify anxiety symptoms and that Xanax is a habit-forming medication. My recommendation is for her to be tapered off Xanax. At this point we will switch the patient to Ativan 0.5 mg twice a day. I discussed that over the next week to 10 days, she could be tapered to one tablet a day and then off altogether. We discussed that she would likely have some short-term withdrawal issues from stopping benzodiazepines, though would not fully get through withdrawal until she also was completely off of opioids. I discussed that long-term use of opioids may in fact aggravate chronic pain issues and that studies have shown that a significant majority of patients once they are able to get off opioids actually have reduction in chronic pain. Given that the patient is physically active with things like walking and home activities, she could likely use some of those to her benefit to help improve her body mechanics. I noted that if she were able to taper off of opioids she would likely experience significant withdrawal issues, especially in the first two weeks, though would have continued withdrawal issues at least out 6 to 8 weeks beyond that. Studies indicate that the majority of people would begin to see a reduction in pain issues. At this point I will continue her on her morphine 30 mg 4 times a day. I encouraged her to talk to Dr. Ortiz about alternatives to habit-forming medications. I encouraged the patient to stop marijuana altogether and discussed that she also will have some short-term aggravation of withdrawal issues from stopping marijuana. The same is the case for Focalin, which will not be continued at this time. In addition, there are some concerns relating to Inderal; even though it is at a low dose, it can aggravate depression issues. Further I discussed with the patient that, given her long- term issues with anxiety and possible post-traumatic issues, there might be consideration for her getting into regular psychotherapy that typically would be least on a weekly basis. She might be a good candidate for exposure therapy to address PTSD issues. Given that the patient has outpatient providers and an apparently supportive living situation, we may be able to have a fairly limited inpatient stay. We will focus on stabilization and discharge planning. LESLIE / MARISOLN: [phone] /
[2021-05-29 16:28] LABS: Chol/HDL Ratio 6.25 Ratio; LDL Cholesterol,Calculated 212.5 mg/dL (0.0-131.0)
[2021-05-29] MEDS: ZIPRASIDONE 40 MG CAP PO SCH (22:20)
[2021-05-29] MEDS: MIRTAZAPINE 15 MG TAB PO SCH (22:20)
[2021-05-29] MEDS: LORazepam 0.5 MG TAB PO SCH (22:21)
[2021-05-30] MEDS: MORPHINE SULFATE IR 15 MG TABLET PO SCH ×4 (06:02→22:29)
[2021-05-30 06:07] VITALS: RESP 18
[2021-05-30] MEDS: NICOTINE 14MG/24HR PATCH TRANSDERM SCH (08:49)
[2021-05-30] MEDS: BENZTROPINE MESYLATE 1 MG TAB PO SCH ×2 (08:50→20:55)
[2021-05-30] MEDS: PROPRANOLOL 10 MG TAB PO SCH ×2 (08:50→20:56)
[2021-05-30] MEDS: SERTRALINE 100 MG TAB PO SCH (08:50)
[2021-05-30] MEDS: ZIPRASIDONE 20 MG CAP PO SCH (08:50)
[2021-05-30] MEDS: LORazepam 0.5 MG TAB PO SCH (08:51)
--- NOTE | 2021-05-30 11:39 | P.PN ---
Progress Note - Text Progress Note Date: 05/30/21 CHIEF COMPLAINT The patient had increasing suicidal thoughts over the last few weeks. She also had GI distress with vomiting and not able to keep food or fluids down. She has high anxiety. INTERVAL HISTORY The patient has been doing fair. She had a quiet day yesterday. She comes on in the unit. She will interact with others. She chose not to attend groups. She said she slept well last night. Today she spent up. When I talked to her she walked into the office and said "I'm doing fine and not having any problems." She made statements about hoping to be discharged soon, possibly Monday. She acknowledges that she has some anxiety in regards to group situations, though I encouraged her to try to attend groups today even if she just stays as an observer. She said that she is doing better since getting restarted on Geodon. When I reviewed issues regarding substance use problems the patient said that she did not believe she would have problems stopping marijuana. She seemed comfortable with the idea of being tapered off of Ativan, and not returning to use of benzodiazepines. She was on Xanax prior to admission. When I talked with her about physical activity that she could engage in to help manage some of her back problems she said she walks frequently and would be interested in using a stationary bicycle that is available to her. She tolerates his psychotropic medications. MENTAL STATUS EXAM Patient was somewhat restless. She gave good eye contact. She answered questions appropriately. She smiled throughout most of the interview. She had a somewhat intense manner. Her mood was even. She presented with a sense of anxiety though not being distressed. There was no indication of thought disorder. She denied thoughts of harm. She was oriented and alert. ASSESSMENT/PLAN I will continue the current diagnosis and treatment plan. I will continue psych otropic medications the same though will reduce Ativan to 0.5 mg at at bedtime only starting tomorrow. I encouraged the patient to work with her pain specialist to look for alternatives to opioid pain medications. We need to coordinate with outpatient resources. I would anticipate the patient being discharged in the next few days.
[2021-05-30] MEDS: MIRTAZAPINE 15 MG TAB PO SCH (20:55)
[2021-05-30] MEDS: ZIPRASIDONE 40 MG CAP PO SCH (20:55)
[2021-05-30] MEDS ORDERED: LORazepam 0.5 MG TAB PO SCH (21:00)
[2021-05-31] MEDS: MORPHINE SULFATE IR 15 MG TABLET PO SCH ×2 (05:57→10:58)
[2021-05-31 06:18] VITALS: TEMP 97.5
[2021-05-31] MEDS: BENZTROPINE MESYLATE 1 MG TAB PO SCH (08:49)
[2021-05-31] MEDS: ZIPRASIDONE 20 MG CAP PO SCH (08:50)
[2021-05-31] MEDS: SERTRALINE 100 MG TAB PO SCH (08:50)
[2021-05-31] MEDS: PROPRANOLOL 10 MG TAB PO SCH (08:51)
[2021-05-31 08:52] VITALS: BP 125/72; PULSE 77
--- NOTE | 2021-05-31 12:22 | P.DS ---
Providers Date of admission: 05/28/21 16:23 Expected date of discharge: 05/31/21 Attending physician: Peter Wynn MD Consults: 05/28/21 16:51 Consult Physician Routine Consulting Provider: Lupis Muniz Consult Reason/Comments: medical management Do you want consulting provider notified?: Already Contacted Primary care physician: Amanda Davis - Discharge Diagnosis(es) (1) Major depressive disorder Current Visit: Yes Status: Acute Priority: High (2) Generalized anxiety disorder Current Visit: Yes Status: Acute Priority: Medium Hospital Course: Admission HPI: Initial psychiatric evaluation was completed by Dr. Vang on 05/29/2021 who wrote: "The patient is a 41-year-old single female. She had been living independently, though is moving in with family. She presented to the ED for evaluation. The patient had increasing suicidal thoughts over the last few weeks. She has also had GI distress and vomiting and not able to keep food or fluids down. She reported elevated anxiety. The patient describes that she has diagnoses of a core phobia and panic disorder. She is followed by Dr. Paez. 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 She has had a number of surgeries and says that she has routes to support her spine. She says the chronic pain issues go back over 10 years. Current medications that the patient is on include Geodon 20 mg in the morning, 40 mg in the evening, Zoloft 50 mg a day, Inderal 10 mg twice a day, morphine 30 mg 4 times a day, Remeron 15 g at bedtime, Focalin 10 mg twice a day, Cogentin 1 mg twice a day, and Xanax 1 mg twice a day. The patient states that she has not taken Focalin for the last 10 days since she has had the GI upset. She states that the Geodon was prescribed for agoraphobia and Inderal was prescribed for her anxiety. Current situation is that in the last few weeks she has had a change in her compensation. She had been on SSDI and [employer] compensation. She lost income from changes in the regulation, where she does not meet criteria. She said that was a highly stressful situation for her. She had been living independently, though now cannot afford it. She also says that about 10 days ago she started getting a lot of GI upset with vomiting and GI pain. She says that she has had long-term problems with anxiety difficulties being around others. She says that she has had significant depression over the years. She has not had any prior psychiatric hospitalization. She notes that she sees Dr. Paez for medications and has been in therapy with him where she sees him once a month. She reports that she'll be staying with her aunt and uncle soon. The patient notes that she has been sleeping fair. Some nights she sleeps better while other nights not so well. She was that she has had some posttraumatic issues and can describe some flashbacks and triggers to distress. She was vague about the situation and develop playing suicidal thinking, and that when I interviewed her on the unit she no longer reported that she was suicidal. During the interview, the patient was very insistent on the idea that she needed to be discharged as soon as possible. She says that the environment here on the unit is just not for her. She be better off if she was to stay at home with her family. She was admitted for further evaluation. Hospital course: Upon admission to the unit patient was initially requesting to leave after endorsing suicidal ideation however reported to the initial provider that she was no longer suicidal once admitted to the unit. Patient was however directable and agreeable to commence treatment. Patient got along well with other patients on the unit and followed unit protocol. Patient was compliant with the medications and denied any side effects throughout hospital course. Patient was started on her home medications of Geodon, Zoloft, and Remeron. Inderal was also added to her regimen and Zoloft was increased to 100 mg daily. Patient spoke of her stressors and engaged in therapy both group and individual. Patient was also seen by medical team for history and physical exam. Over the course of hospitalization, the patient displayed improvement in regards to mood, anxiety, sleep, and future orientation. Furthermore, the patient engage both individual and milieu activities of high-level participation. The patient was adherent with her medications and reported no significant side effects. On the discharge, the patient is not reporting any suicidal or homicidal ideation, intention, and/or plan. She is not reporting any auditory or visual hallucinations patient denies any paranoia or other delusions. The patient has been adherent to medications and is not reporting any significant side effects. Patient denies any access to firearms or other weapons. She remains future oriented. The patient was counseled at length on importance of medication adherence and regular follow-up with her outpatient providers for mental health for primary care. The patient does not have significant history of substance abuse however was counseled on abstaining from all substances including alcohol and marijuana. Prior to discharge, family meeting will be arranged by pediatric social worker to answer questions and ensure safety. During this hospitalization, the patient was also examined by the medical doctor for a history and physical examination. Mental status exam: General Appearance: Patient appears to be stated age is alert, pleasant, and cooperative. Patient is in no acute distress and has fair hygiene and grooming Behavior: Patient is calmly seated without any agitated behavior. Speech: Patient's speech is fluent and nonpressured. Mood/Affect: Patient reports their mood is "I feel happy", affect is congruent and euthymic to bright. Suicidality/Homicidality: Patient denies having any suicidal or homicidal ideation intent or plan. Perceptions: Patient denies any auditory or visual hallucinations. Though content/process: There is no evidence of any delusional thought content and thought process is linear and goal-directed. Patient appears to be future oriented. Memory and concentration: AOX3, grossly intact for the purposes of this session. Can spell "WORLD" backwards correctly. Judgment and insight: Improved Vital Signs Temp 97.5 F L 05/31/21 06:17 Pulse 77 05/31/21 08:52 Resp 18 05/31/21 06:17 BP 125/72 05/31/21 08:52 Pulse Ox 95 05/31/21 06:17 Intake & Output 05/30/21 05/31/21 05/31/21 18:59 06:59 18:59 Weight 80.6 kg Impression: Major depressive disorder, recurrent, severe, with anxious features Generalized anxiety disorder Plan: -Continue with discharge today as patient has improved and stabilized psychiatrically and is not currently an imminent threat to herself and/or others. -Continue medications: Geodon 20 mg by mouth daily and 40 mg by mouth at bedtime for mood augmentation Zoloft 100 mg daily for depression/anxiety Cogentin 1 mg by mouth twice a day for EPS side effects Inderal 10 mg twice a day for anxiety Remeron 15 mg daily at bedtime for insomnia/aggression/nausea -Patient was counseled on the need for medication compliance and appropriate follow-up at mental health and also primary care for medical issues. Patient verbalized understanding and agreed. -Social work to arrange for and conduct family meeting to ensure safety upon discharge and answer any questions/concerns. Social work also to arrange for patients follow up appointments for psychiatric care along with follow up with primary care provider. -Patient counseled on abstaining from recreational drugs and marijuana and alcohol. Was informed/educated on the adverse effects on their physical and mental health. Patient verbally agreed and understood. -Patient was instructed to return to the hospital or seek immediate medical care if their psychiatric or medical symptoms do worsen or reoccur. -Psychoeducation and supportive therapy provided to patient. Risks and benefits of pharmacological treatment versus the risks and benefits of nontreatment weight and discussed. Informed consent discussion held. Common side effects of psychotropics discussed such as, but not limited to headache, GI disturbance, sexual dysfunction, movement disorders, sedation, and orthostatic hypotension. Life threatening and blackbox warnings of prescribed medications also discussed. Potential risks of operating a vehicle or heavy machinery discussed with amber ent at length. Advised on importance of compliance and a reliable and responsible manner. Patient advised to review FDA consumer labeling of all medications prior to taking. Patient verbalized understanding of potential risks, and agrees with current treatment plan. Patient advised to medically contact physician/emergency personnel if any acute changes in condition occur. Laboratory Results WBC 9.2 k/uL (3.8-10.6) 05/28/21 13:07 RBC 4.56 m/uL (3.80-5.40) 05/28/21 13:07 Hgb 14.4 gm/dL (11.4-16.0) 05/28/21 13:07 Hct 41.0 % (34.0-46.0) 05/28/21 13:07 MCV 90.0 fL (80.0-100.0) 05/28/21 13:07 MCH 31.6 pg (25.0-35.0) 05/28/21 13:07 MCHC 35.1 g/dL (31.0-37.0) 05/28/21 13:07 RDW 13.6 % (11.5-15.5) 05/28/21 13:07 Plt Count 415 k/uL (150-450) 05/28/21 13:07 MPV 6.9 05/28/21 13:07 Neutrophils % 72 % 05/28/21 13:07 Lymphocytes % 21 % 05/28/21 13:07 Monocytes % 5 % 05/28/21 13:07 Eosinophils % 1 % 05/28/21 13:07 Basophils % 0 % 05/28/21 13:07 Neutrophils # 6.6 k/uL (1.3-7.7) 05/28/21 13:07 Lymphocytes # 1.9 k/uL (1.0-4.8) 05/28/21 13:07 Monocytes # 0.4 k/uL (0-1.0) 05/28/21 13:07 Eosinophils # 0.1 k/uL (0-0.7) 05/28/21 13:07 Basophils # 0.0 k/uL (0-0.2) 05/28/21 13:07 Sodium 138 mmol/L (137-145) 05/28/21 13:07 Potassium 3.9 mmol/L (3.5-5.1) 05/28/21 13:07 Chloride 106 mmol/L (98-107) 05/28/21 13:07 Carbon Dioxide 20 mmol/L (22-30) L 05/28/21 13:07 Anion Gap 12 mmol/L 05/28/21 13:07 BUN 10 mg/dL (7-17) 05/28/21 13:07 Creatinine 0.86 mg/dL (0.52-1.04) 05/28/21 13:07 Est GFR (CKD-EPI)AfAm >90 (>60 ml/min/1.73 sqM) 05/28/21 13:07 Est GFR (CKD-EPI)NonAf 85 (>60 ml/min/1.73 sqM) 05/28/21 13:07 Glucose 111 mg/dL (74-99) H 05/28/21 13:[address] Glu mg/dL 124 05/28/21 13:07 Hemoglobin A1c 5.9 % (0.0-6.0) 05/28/21 13:07 Plasma Lactic Acid [place] 1.5 mmol/L (0.7-2.0) 05/28/21 13:07 Calcium 10.2 mg/dL (8.4-10.2) 05/28/21 13:07 Total Bilirubin 0.7 mg/dL (0.2-1.3) 05/28/21 13:07 AST 36 U/L (14-36) 05/28/21 13:07 ALT 59 U/L (4-34) H 05/28/21 13:07 Alkaline Phosphatase 125 U/L (38-126) 05/28/21 13:07 Total Protein 8.2 g/dL (6.3-8.2) 05/28/21 13:07 Albumin 4.8 g/dL (3.5-5.0) 05/28/21 13:07 Triglycerides 143.00 mg/dL (0.00-149.00) 05/28/21 13:07 Cholesterol 287.00 mg/dL (0.00-200.00) H 05/28/21 13:07 LDL Cholesterol, Calc 212.5 mg/dL (0.0-131.0) H 05/28/21 13:07 VLDL Cholesterol, Calc 28.60 mg/dL (5.00-40.00) 05/28/21 13:07 HDL Cholesterol 45.90 mg/dL (40.00-60.00) 05/28/21 13:07 Cholesterol/HDL Ratio 6.25 Ratio 05/28/21 13:07 Amylase 54 U/L (30-110) 05/28/21 13:07 Lipase 104 U/L (23-300) 05/28/21 13:07 TSH 2.140 mIU/L (0.465-4.680) 05/28/21 13:07 Urine Color Yellow 05/28/21 13:07 Urine Appearance Cloudy (Clear) H 05/28/21 13:07 Urine pH 6.0 (5.0-8.0) 05/28/21 13:07 Ur Specific [place] 1.025 (1.001-1.035) 05/28/21 13:07 Urine Protein 1+ (Negative) H 05/28/21 13:07 Urine Glucose (UA) Negative (Negative) 05/28/21 13:07 Urine Ketones 1+ (Negative) H 05/28/21 13:07 Urine Blood Moderate (Negative) H 05/28/21 13:07 Urine Nitrite Negative (Negative) 05/28/21 13:07 Urine Bilirubin Negative (Negative) 05/28/21 13:07 Urine Urobilinogen <2.0 mg/dL (<2.0) 05/28/21 13:07 Ur Leukocyte Esterase Large (Negative) H 05/28/21 13:07 Urine RBC 17 /hpf (0-5) H 05/28/21 13:07 Urine WBC >182 /hpf (0-5) H 05/28/21 13:07 Ur Squamous Epith Cells 8 /hpf (0-4) H 05/28/21 13:07 Urine Mucus Many /hpf (None) H 05/28/21 13:07 Urine HCG, Qual Not Detected (Not Detectd) 05/28/21 13:07 Urine Opiates Screen Detected (NotDetected) H 05/28/21 13:07 Ur Oxycodone Screen Not Detected (NotDetected) 05/28/21 13:07 Urine Methadone Screen Not Detected (NotDetected) 05/28/21 13:07 Ur Propoxyphene Screen Not Detected (NotDetected) 05/28/21 13:07 Ur Barbiturates Screen Not Detected (NotDetected) 05/28/21 13:07 U Tricyclic Antidepress Not Detected (NotDetected) 05/28/21 13:07 Ur Phencyclidine Scrn Not Detected (NotDetected) 05/28/21 13:07 Ur Amphetamines Screen Detected (NotDetected) H 05/28/21 13:07 U Methamphetamines Scrn Detected (NotDetected) H 05/28/21 13:07 U Benzodiazepines Scrn Detected (NotDetected) H 05/28/21 13:07 Urine Cocaine Screen Not Detected (NotDetected) 05/28/21 13:07 U Marijuana (THC) Screen Detected (NotDetected) H 05/28/21 13:07 Coronavirus (PCR) Not Detected (Not Detectd) 05/28/21 12:48 Allergies Allergy/AdvReac Type Severity Reaction Status Date / Time acetaminophen [From Vicodin] AdvReac Nausea & Verified 05/28/21 12:51 Vomiting fentanyl AdvReac Nausea & Verified 05/28/21 12:51 Vomiting hydrocodone [From Vicodin] AdvReac Nausea & Verified 05/28/21 12:51 Vomiting Patient Condition at Discharge: Stable Plan - Discharge Summary Discharge Rx Participant: No New Discharge Prescriptions: New Ziprasidone [Geodon] 20 mg PO DAILY 30 Days cap Ziprasidone [Geodon] 40 mg PO HS 30 Days cap Sertraline [Zoloft] 100 mg PO DAILY 30 Days tab Benztropine Mesylate [Cogentin] 1 mg PO BID 30 Days tab Propranolol [Inderal] 10 mg PO BID 30 Days tab Mirtazapine [Remeron] 15 mg PO HS 30 Days tab Continue ALPRAZolam [Xanax] 1 mg PO BID Morphine Sulfate Ir [MSIR] 30 mg PO QID Dexmethylphenidate HCl [Focalin] 10 mg PO BID Discontinued Propranolol [Inderal] 10 mg PO BID #28 tab Sertraline [Zoloft] 50 mg PO DAILY #14 tab Ziprasidone [Geodon] 40 mg PO HS Mirtazapine [Remeron] 15 mg PO HS Ziprasidone [Geodon] 20 mg PO DAILY Benztropine Mesylate [Cogentin] 1 mg PO BID Discharge Medication List ALPRAZolam [Xanax] 1 mg PO BID 05/28/21 [History] Dexmethylphenidate HCl [Focalin] 10 mg PO BID 05/28/21 [History] Morphine Sulfate Ir [MSIR] 30 mg PO QID 05/28/21 [History] Benztropine Mesylate [Cogentin] 1 mg PO BID 30 Days tab 05/31/21 [Rx] Mirtazapine [Remeron] 15 mg PO HS 30 Days tab 05/31/21 [Rx] Propranolol [Inderal] 10 mg PO BID 30 Days tab 05/31/21 [Rx] Sertraline [Zoloft] 100 mg PO DAILY 30 Days tab 05/31/21 [Rx] Ziprasidone [Geodon] 20 mg PO DAILY 30 Days cap 05/31/21 [Rx] Ziprasidone [Geodon] 40 mg PO HS 30 Days cap 05/31/21 [Rx] Follow up Appointment(s)/Referral(s): Amanda Davis DO [Primary Care Provider] - 06/02/21 9:00 am (Please call office on 02 am for exact appointment time.) Activity/Diet/Wound Care/Special Instructions: Activity and diet as tolerated. Avoid the use of street drugs and alcohol. Take all medications as prescribed. When you are in need of refills on your medications please contact your medical provider and/or outpatient psychiatrist to have this done. Please go to scheduled outpatient appointment for aftercare treatment. If symptoms return or become worse, call the crisis line at and/or go to the nearest emergency room for evaluation Discharge Disposition: HOME SELF-CARE
--- NOTE | 2021-05-31 13:35 | P.CONS ---
History of Present Illness - Reason for Consult Medical clearance - History of Present Illness Patient is admitted to psychiatric floor because of suicidal ideations. Medicine was consulted for clearance. Patient is clinically doing well I saw the patient today. Patient urine analysis is abnormal with the patient and any dysuria, patient urine is also a contaminated urine sample no symptoms of urinary tract infection patient doesn't have any fever leukocytosis. Patient although is found to have highly elevated LDL and highly elevated total cholesterol. Patient is otherwise clinically doing well. Patient urine drug screen is positive on multiple medications including opiates and amphetamines a lthough patient will was prescribed these medications patient is on morphine by mouth for her chronic neck pain, urine drug screen is also positive for marijuana and benzodiazepines. REVIEW OF SYSTEMS: CONSTITUTIONAL: No fever, no malaise, no fatigue. HEENT: No recent visual problems or hearing problems. Denied any sore throat. CARDIOVASCULAR: No chest pain, orthopnea, PND, no palpitations, no syncope. PULMONARY: No shortness of breath, no cough, no hemoptysis. GASTROINTESTINAL: No diarrhea, no nausea, no vomiting, no abdominal pain. NEUROLOGICAL: No headaches, no weakness, no numbness. HEMATOLOGICAL: Denies any bleeding or petechiae. GENITOURINARY: Denies any burning micturition, frequency, or urgency. MUSCULOSKELETAL/RHEUMATOLOGICAL: Denies any joint pain, swelling, or any muscle pain. ENDOCRINE: Denies any polyuria or polydipsia. The rest of the 14-point review of systems is negative. PHYSICAL EXAMINATION: GENERAL: The patient is alert and oriented x3, not in any acute distress. Well developed, well nourished. HEENT: Pupils are round and equally reacting to light. EOMI. No scleral icterus. No conjunctival pallor. Normocephalic, atraumatic. No pharyngeal erythema. No thyromegaly. CARDIOVASCULAR: S1 and S2 present. No murmurs, rubs, or gallops. PULMONARY: Chest is clear to auscultation, no wheezing or crackles. ABDOMEN: Soft, nontender, nondistended, normoactive bowel sounds. No palpable organomegaly. MUSCULOSKELETAL: No joint swelling or deformity. EXTREMITIES: No cyanosis, clubbing, or pedal edema. NEUROLOGICAL: Gross neurological examination did not reveal any focal deficits. SKIN: No rashes. Assessment and plan -Asymptomatic bacteriuria which will not warrant any antibiotics patient can be discharged from medical perspective. Moreover urine culture is not consistent with UTI -Depression management as per primary service -Hyperlipidemia continue with Lipitor -Possible hypertension patient is on Inderal, which can be continued follow-up with PCP in about a week Patient can be discharged from medical perspective Past Medical History Past Medical History: No Reported History History of Any Multi-Drug Resistant Organisms: None Reported Past Surgical History: No Surgical Hx Reported Additional Past Surgical History / Comment(s): back surgery Past Psychological History: Anxiety, Depression, Panic Disorder Smoking Status: Never smoker Past Alcohol Use History: None Reported Past Drug Use History: None Reported - Past Family History Mother Family Medical History: No Reported History Medications and Allergies Home Medications Medication Instructions Recorded Confirmed Type ALPRAZolam [Xanax] 1 mg PO BID 05/28/21 05/28/21 History Dexmethylphenidate HCl [Focalin] 10 mg PO BID 05/28/21 05/28/21 History Morphine Sulfate Ir [MSIR] 30 mg PO QID 05/28/21 05/28/21 History Atorvastatin [Lipitor] 40 mg PO HS #30 tablet 05/31/21 Rx Benztropine Mesylate [Cogentin] 1 mg PO BID 30 Days tab 05/31/21 Rx Mirtazapine [Remeron] 15 mg PO HS 30 Days tab 05/31/21 Rx Propranolol [Inderal] 10 mg PO BID 30 Days tab 05/31/21 Rx Sertraline [Zoloft] 100 mg PO DAILY 30 Days tab 05/31/21 Rx Ziprasidone [Geodon] 20 mg PO DAILY 30 Days cap 05/31/21 Rx Ziprasidone [Geodon] 40 mg PO HS 30 Days cap 05/31/21 Rx Allergies Allergy/AdvReac Type Severity Reaction Status Date / Time acetaminophen [From Vicodin] AdvReac Nausea & Verified 05/28/21 12:51 Vomiting fentanyl AdvReac Nausea & Verified 05/28/21 12:51 Vomiting hydrocodone [From Vicodin] AdvReac Nausea & Verified 05/28/21 12:51 Vomiting Physical Exam Vitals: Vital Signs Temp Pulse Resp BP Pulse Ox 05/31/21 08:52 77 125/72 05/31/21 06:17 97.5 F L 65 18 116/73 95 Results CBC & Chem 7: 05/28/21 13:07 05/28/21 13:07
== END 2021-05-31 13:34 | disposition home or self-care (01) | DRG 885 ==
LOC: EC 12:12 → 3MHU 16:23
PROVIDERS: ADMIT Psychiatry & Neurology Psychiatry; ATTEND Psychiatry & Neurology Psychiatry
DX: F33.2 Major depressive disorder, recurrent severe without psychotic features (principal); R45.851 Suicidal ideations; E78.5 Hyperlipidemia, unspecified; F40.00 Agoraphobia, unspecified; F41.0 Panic disorder [episodic paroxysmal anxiety]; F41.1 Generalized anxiety disorder; G47.00 Insomnia, unspecified; G89.29 Other chronic pain; F15.90 Other stimulant use, unspecified, uncomplicated; K59.00 Constipation, unspecified; Z59.9 Problem related to housing and economic circumstances, unspecified; Z79.899 Other long term (current) drug therapy; R11.10 Vomiting, unspecified; R82.71 Bacteriuria; Z88.6 Allergy status to analgesic agent; Z88.5 Allergy status to narcotic agent; M54.9 Dorsalgia, unspecified; Z20.822 Contact with and (suspected) exposure to COVID-19
CPT/HCPCS: 36415; 74018; 80053; 80061; 80306; 81001; 81025; 82075; 82150; 83036; 83605; 83690; 84443; 85025; 87086; 87635; 93005; 96361; 96374; 96375; 99285